=== PATIENT | male | born 1960 | race Caucasian/White ===

== ENCOUNTER 2016-07-01 06:41 | Day surgery (SDC) | payer OTHER ==
[2016-06-06 10:29] VITALS: BMI 26.4
[~2016-07-01 06:41] MED LIST: LACTATED RINGERS 1,000 ML IV SCH
[2016-07-01] MEDS ORDERED: LACTATED RINGERS 1,000 ML IV ONE ×2 (07:00)
[2016-07-01 07:06] VITALS: RESP 18; TEMP 96.8
[2016-07-01] MEDS ORDERED: fentaNYL (PF) 50 MCG/ML 2 ML AMP ONE (07:48)
[2016-07-01] MEDS ORDERED: PROPOFOL 10 MG/ML 20 ML VIAL IV ONE (07:48)
[2016-07-01] MEDS ORDERED: MIDAZOLAM 2 MG/2 ML VIAL ONE (07:48)
--- NOTE | 2016-07-01 07:56 | P.GSHP ---
History of Present Illness H&P Date: 07/01/16 Chief Complaint: Screening colonoscopy This a 56-year-old male been sick for screening colonoscopy. He has never had a colonoscopy before. He denies any significant complaints. - Constitutional Constitutional: Reports as per HPI Past Medical History Past Medical History: GERD/Reflux, Hyperlipidemia, Hypertension, Musculoskeletal Disorder, Osteoarthritis (OA) Additional Past Medical History / Comment(s): CHRONIC SINUS INFECTIONS. SEE H & P BY DR CORONADO FOR CARDIOVASCULAR HX. RAFAT,CARDIOVERSION/ABLATION; DEG. DISCS History of Any Multi-Drug Resistant Organisms: None Reported Past Surgical History: Pacemaker Additional Past Surgical History / Comment(s): FIRST SURGERY Past Anesthesia/Blood Transfusion Reactions: No Reported Reaction Additional Past Anesthesia/Blood Transfusion Reaction / Comment(s): PATIENT HAS NEVER HAD ANESTHESIA. Type of Cardiac Device: Permanent Pacemaker Device Placement Date:: 2014 Past Psychological History: Anxiety Additional Psychological History / Comment(s): RECENTLY LOST HIS JOB. Smoking Status: Former smoker Past Alcohol Use History: Rare Additional Past Alcohol Use History / Comment(s): PT HAS SMOKED FOR 40 YEARS, 1 PPD AND OCC SMOKES MARIJUANA Past Drug Use History: Cocaine, Marijuana - Past Family History Father Additional Family Medical History / Comment(s): HEART TRANSPLANT. Sister(s) Additional Family Medical History / Comment(s): BRAIN ANEURYSM (SURGERY WAS SUCCESSFUL). Medications and Allergies Home Medications Medication Instructions Recorded Confirmed Type Gemfibrozil [Lopid] 600 mg PO BID 07/22/14 07/01/16 History Loratadine 10 mg PO DAILY 07/22/14 07/01/16 History Losartan Potassium 150 mg PO HS 07/22/14 07/01/16 History Multivitamins, Thera [Multivitamin 1 tab PO DAILY 07/22/14 07/01/16 History (formulary)] Ranitidine HCl 150 mg PO BID 07/22/14 07/01/16 History clonazePAM [Clonazepam] 1 mg PO HS PRN 07/22/14 07/01/16 History Edoxaban Tosylate [Savaysa] 60 mg PO DAILY 08/30/14 07/01/16 History Spironolactone [Aldactone] 25 mg PO QAM 08/30/14 07/01/16 History amLODIPine [Norvasc] 10 mg PO DAILY 09/06/14 07/01/16 History Atorvastatin [Lipitor] 20 mg PO HS 11/03/14 07/01/16 History HYDROcodone/APAP 7.5-325MG [[place] 1 each PO Q6HR PRN 11/03/14 07/01/16 History 7.5-325] Allergies Allergy/AdvReac Type Severity Reaction Status Date / Time cephalexin monohydrate Allergy Rash/Hives Verified 07/01/16 07:06 [From Keflex] Surgical - Exam Vital Signs Temp Pulse Resp BP Pulse Ox 96.8 F L 77 18 136/75 95 07/01/16 07:02 07/01/16 07:02 07/01/16 07:02 07/01/16 07:02 07/01/16 07:02 - General well developed, no distress - Eyes PERRL - ENT normal pinna - Neck no masses - Respiratory normal expansion - Cardiovascular Rhythm: regular - Abdomen Abdomen: soft Assessment and Plan Plan: We'll perform screening colonoscopy
--- NOTE | 2016-07-01 08:06 | P.OP ---
Date of Procedure: 07/01/16 Preoperative Diagnosis: Screening colonoscopy Postoperative Diagnosis: Diverticulosis External hemorrhoids Procedure(s) Performed: Colonoscopy Anesthesia: MAC Surgeon: Wes Wyatt Pathology: none sent Condition: stable Disposition: PACU Description of Procedure: The patient's placed on the endoscopy table in the lateral position. Received IV sedation. Digital rectal exam was performed which revealed external hemorrhoids. The flexible colonoscope was then placed patient anus passed throughout the entire colon. The ileocecal valve was visualized. Cecum, ascending, transverse colon appeared normal. In the descending; there is mild diverticular changes. There is no evidence of diverticulitis. The scope was then brought back the rectum and this appeared normal. Scope was withdrawn for patient.
[2016-07-01 08:26] VITALS: BP 103/58; PULSE 64
== END 2016-07-01 08:44 | disposition home or self-care (01) ==
LOC: ORWHC2ENDO 06:41
PROVIDERS: ATTEND Surgery
DX: Z12.11 Encounter for screening for malignant neoplasm of colon (principal); K57.30 Diverticulosis of large intestine without perforation or abscess without bleeding; E78.5 Hyperlipidemia, unspecified; K64.4 Residual hemorrhoidal skin tags; Z87.891 Personal history of nicotine dependence; K21.9 Gastro-esophageal reflux disease without esophagitis; I10 Essential (primary) hypertension; Z95.0 Presence of cardiac pacemaker; Z79.899 Other long term (current) drug therapy; Z88.1 Allergy status to other antibiotic agents
CPT/HCPCS: J2250; J3010; J2704; G0121

== ENCOUNTER 2016-07-20 13:39 | Emergency (ER) | payer OTHER ==
[2016-07-20 13:49] VITALS: BP 180/81; PULSE 84; RESP 16; TEMP 98
[2016-07-20] MEDS ORDERED: PROPARACAINE 0.5% OPHTH DROPS 15 ML BTL LEFT EYE STA (13:51)
[2016-07-20] MEDS ORDERED: TOBRAMYCIN 0.3% OPHTH DROPS 5 ML BTL LEFT EYE STA (14:01)
--- NOTE | 2016-07-20 14:02 | ED ---
Eye Problem HPI - General Chief complaint: Eye Problems Stated complaint: FB left eye Time Seen by Provider: 07/20/16 13:48 Source: patient Mode of arrival: ambulatory Limitations: no limitations - History of Present Illness Initial comments: 56-year-old male woke up today with left eye feeling irritated. Patient states every time he blinks he feels a foreign body sensation. Patient states he was working on his car yesterday is not sure something fell and it repeat cirrhosis. Patient states yesterday there was no signs or symptoms of any foreign body. He denies any visual changes. He does notice some redness. He denies any drainage today. no fevers no rash. No chronic eye disease. Patient has had some sinus pressure congestion that ongoing for a few weeks. Patient states he does get chronic infection and seasonal ALLERGIES often. Location: left eye Eye Symptoms: redness, pain, foreign body sensation - Related Data Patient Tetanus UTD: Yes Home Medications Medication Instructions Recorded Confirmed Gemfibrozil [Lopid] 600 mg PO BID 07/22/14 07/20/16 Loratadine 10 mg PO DAILY 07/22/14 07/20/16 Losartan Potassium 150 mg PO HS 07/22/14 07/20/16 Multivitamins, Thera [Multivitamin 1 tab PO DAILY 07/22/14 07/20/16 (formulary)] Ranitidine HCl 150 mg PO BID 07/22/14 07/20/16 clonazePAM [Clonazepam] 1 mg PO HS PRN 07/22/14 07/20/16 Edoxaban Tosylate [Savaysa] 60 mg PO DAILY 08/30/14 07/20/16 Spironolactone [Aldactone] 25 mg PO QAM 08/30/14 07/20/16 amLODIPine [Norvasc] 10 mg PO DAILY 09/06/14 07/20/16 Atorvastatin [Lipitor] 20 mg PO HS 11/03/14 07/20/16 HYDROcodone/APAP 7.5-325MG [[place] 1 each PO Q6HR PRN 11/03/14 07/20/16 7.5-325] Previous Rx's Medication Instructions Recorded Metoprolol Succinate (ER) [Toprol 100 mg PO DAILY #30 tab.er.24h 11/08/14 XL] Sulfamethox-Tmp 800-160Mg [Bactrim 1 each PO Q12HR #14 tab 07/20/16 DS 800-160 mg] Allergies Allergy/AdvReac Type Severity Reaction Status Date / Time cephalexin monohydrate Allergy Rash/Hives Verified 07/20/16 13:49 [From Keflex] Review of Systems ROS Statement: Those systems with pertinent positive or pertinent negative responses have been documented in the HPI. ROS Other: All systems not noted in ROS Statement are negative. Constitutional: Denies: fever, chills Eyes: Reports: eye pain ENT: Denies: ear pain, throat pain, dental pain, hearing loss, epistaxis Respiratory: Denies: cough Past Medical History Past Medical History: GERD/Reflux, Hyperlipidemia, Hypertension, Musculoskeletal Disorder, Osteoarthritis (OA) Additional Past Medical History / Comment(s): CHRONIC SINUS INFECTIONS. SEE H & P BY DR CORONADO FOR CARDIOVASCULAR HX. RAFAT,CARDIOVERSION/ABLATION; DEG. DISCS History of Any Multi-Drug Resistant Organisms: None Reported Past Surgical History: Pacemaker Additional Past Surgical History / Comment(s): FIRST SURGERY Past Anesthesia/Blood Transfusion Reactions: No Reported Reaction Additional Past Anesthesia/Blood Transfusion Reaction / Comment(s): PATIENT HAS NEVER HAD ANESTHESIA. Type of Cardiac Device: Permanent Pacemaker Device Placement Date:: 2014 Past Psychological History: Anxiety Additional Psychological History / Comment(s): RECENTLY LOST HIS JOB. Smoking Status: Former smoker Past Alcohol Use History: Rare Additional Past Alcohol Use History / Comment(s): PT HAS SMOKED FOR 40 YEARS, 1 PPD AND OCC SMOKES MARIJUANA Past Drug Use History: Cocaine, Marijuana - Past Family History Father Additional Family Medical History / Comment(s): HEART TRANSPLANT. Sister(s) Additional Family Medical History / Comment(s): BRAIN ANEURYSM (SURGERY WAS SUCCESSFUL). General Exam Limitations: no limitations General appearance: alert, in no apparent distress Head exam: Present: atraumatic, normocephalic, normal inspection Eye exam: Present: normal appearance, PERRL, EOMI, conjunctival injection (Left) , other (After proparacaine and fluorescein abrasion noted around 7:00.). Absent: scleral icterus, periorbital swelling Pupils: Present: normal accommodation ENT exam: Present: normal exam, mucous membranes moist, other (Sinus pressure and maxillary and frontal sinus with palpation along with swollen turbinates.) Neck exam: Present: normal inspection. Absent: tenderness, meningismus, lymphadenopathy Respiratory exam: Present: normal lung sounds bilaterally Cardiovascular Exam: Present: regular rate, normal rhythm, normal heart sounds. Absent: systolic murmur, diastolic murmur, rubs, gallop, clicks Course Vital Signs 07/20/16 13:46 Temperature 98 F Pulse Rate 84 Respiratory 16 Rate Blood Pressure 180/81 O2 Sat by Pulse 96 Oximetry Procedures - Procedures Initial comment: Patient given fluorescein and tetracaine in his left eye. Large abrasion noted around 7:00 2 drops of Tobrex was given patient tolerated it well. Medical Decision Making - Medical Decision Making Patient has a corneal abrasion understands follow-up care if not improving in the next 1-2 days with chief specialist leed. Patient to return sooner if any problems. Patient to use medications as prescribed and to rest side. Disposition Clinical Impression: Corneal abrasion, Sinusitis Disposition: HOME SELF-CARE Condition: Good Instructions: Abrasion (ED) Additional Instructions: Patient use Tobrex eyedrops 2 drops every 6 hours for 7 days Prescriptions: Sulfamethox-Tmp 800-160Mg [Bactrim DS 800-160 mg] 1 each PO Q12HR #14 tab Referrals: Flor Bowles MD [Primary Care Provider] - 1-2 days Winter Phoenix MD [STAFF PHYSICIAN] - 1-2 days Time of Disposition: 14:06
== END 2016-07-20 14:09 | disposition home or self-care (01) ==
LOC: EC 13:39
DX: S05.02XA Injury of conjunctiva and corneal abrasion without foreign body, left eye, initial encounter (principal); J32.9 Chronic sinusitis, unspecified; E78.5 Hyperlipidemia, unspecified; I10 Essential (primary) hypertension; Z88.1 Allergy status to other antibiotic agents; Z79.899 Other long term (current) drug therapy; Z87.891 Personal history of nicotine dependence; X58.XXXA Exposure to other specified factors, initial encounter
CPT/HCPCS: 99283

== ENCOUNTER → 2017-09-24 | Outpatient (CLI) | payer MEDICARE, OTHER ==
--- NOTE | 2017-09-24 14:29 | CT ---
EXAMINATION TYPE: CT lumbar spine wo con DATE OF EXAM: 09/24/2017 COMPARISON: 06/16/2015 HISTORY: 57-year-old male with lumbago, Low back pain TECHNIQUE: Contiguous axial scanning of the lumbar spine without IV contrast. Coronal and sagittal re constructions performed. CT DLP: 937.9 mGycm Automated exposure control for dose reduction was used. FINDINGS: Vertebral body heights are preserved. Facet arthropathy mid to lower lumbar spine with trace grade 1 retrolisthesis at L4-L5 appears relati vely similar. Multilevel degenerative disc disease with variable disc space narrowing, greatest at L4-L5 and L5-S1 where disc vacuum is also present and disc osteophyte complexes. Bulging disks at multiple levels. En dplate sclerosis at L5-S1. Changes show some progression from 2016. Vertebral body heights are preserved. On the right, there are similar mild to moderate neuroforaminal stenoses from L2 through S1 levels. O n the left, there are similar moderate neuroforaminal stenoses from L4 through S1 levels and mild at L3-L4. Mild narrowing of the spinal canal secondary to disc bulges again noted from L2 through L4 levels. No maryanne canal compromise appreciated by CT. Ectatic infrarenal abdominal aorta at 2.8 cm. A few scattered sigmoid diverticula. Renal vascular calcifications. IMPRESSION: 1. NO VERTEBRAL COMPRESSION COLLAPSE. FACET ARTHROPATHY MID TO LOWER LUMBAR SPINE WITH SIMILAR TRACE GRADE 1 RETROLISTHESIS AT L4-L5. 2. DEGENERATIVE DISC DISEASE SLIGHTLY PROGRESSED FROM L4 THROUGH S1 LEVELS. THERE IS GREATER DEGREE O F VACUUM PHENOMENON AND DISC OSTEOPHYTE COMPLEX FORMATION. HOWEVER, THERE IS OVERALL SIMILAR VARIABLE MILD NARROWING OF THE SPINAL CANAL. 3. SIMILAR VARIABLE MODERATE NEUROFORAMINAL STENOSES ESPECIALLY FROM L4 TO S1 LEVELS ON THE LEFT. MIL D TO MODERATE NEUROFORAMINAL NARROWING L2-S1 LEVELS ON THE RIGHT.
== END | disposition home or self-care (01) ==
LOC: RADCTMAIN 13:08
PROVIDERS: ATTEND Psychiatry & Neurology Neurology
DX: M48.061 Spinal stenosis, lumbar region without neurogenic claudication (principal); M99.73 Connective tissue and disc stenosis of intervertebral foramina of lumbar region; M46.96 Unspecified inflammatory spondylopathy, lumbar region; M51.37 Other intervertebral disc degeneration, lumbosacral region
CPT/HCPCS: 72131

== ENCOUNTER → 2017-10-17 | Outpatient (CLI) | payer MEDICARE ==
--- NOTE | 2017-10-17 16:44 | CT ---
EXAMINATION TYPE: CT sinus wo con DATE OF EXAM: 10/17/2017 COMPARISON: None. HISTORY: Sinus infections x years. CT DLP: 612 mGycm. Automated Exposure Control for Dose Reduction was Utilized. TECHNIQUE: CT scan of the sinuses is performed without contrast, axial images are obtained, coronal r eformatted images are also reviewed. FINDINGS: Visualized intracranial structures are unremarkable. The soft tissues appear normal. There is mucoperiosteal thickening involving both maxillary sinuses as well as the ethmoid sinuses. T he ostiomeatal complex on the left is patent. On the right it appears occluded by soft tissue. The fr ontal and sphenoid sinuses appear unremarkable. There is a small air-fluid level in the right maxilla ry sinus. No bony destructive lesion is seen. Visualized portions of the mastoids are clear. IMPRESSION: CHRONIC MUCOPERIOSTEAL THICKENING INVOLVING THE MAXILLARY AND ETHMOIDAL SINUSES. I COULD NOT EXCLUDE SOME DEGREE OF ACUTE RIGHT MAXILLARY SINUSITIS.
== END | disposition home or self-care (01) ==
LOC: RADCTMAIN 16:11
PROVIDERS: ATTEND Otolaryngology
DX: J34.89 Other specified disorders of nose and nasal sinuses (principal)
CPT/HCPCS: 70486

== ENCOUNTER → 2018-06-22 | Outpatient (CLI) | payer MEDICARE ==
[2018-06-22 10:58] LABS: HCT 44.8 % (39.0-53.0); HGB 14.6 gm/dL (13.0-17.5); MCH 30.8 pg (25.0-35.0); MCHC 32.7 g/dL (31.0-37.0); MCV 94.2 fL (80.0-100.0); Mean Platelet Volume 6.8; Platelet Count 351 k/uL (150-450); RBC 4.75 m/uL (4.30-5.90); RDW 13.6 % (11.5-15.5); WBC 11.3 k/uL (3.8-10.6)
[2018-06-22 11:16] LABS: Potassium 4.8 mmol/L (3.5-5.1)
== END | disposition home or self-care (01) ==
LOC: LABPAT 10:11
PROVIDERS: ATTEND Internal Medicine Cardiovascular Disease
DX: Z01.812 Encounter for preprocedural laboratory examination (principal); I10 Essential (primary) hypertension; I42.1 Obstructive hypertrophic cardiomyopathy; I44.2 Atrioventricular block, complete
CPT/HCPCS: 80051; 82565; 84520; 85027

== ENCOUNTER 2018-06-25 08:32 | Day surgery (SDC) | payer MEDICARE ==
[2018-06-19 13:03] VITALS: BMI 27.8
[~2018-06-25 08:32] MED LIST changes: +ALPRAZolam 0.25 MG TAB PO PRN; +ALPRAZolam 0.5 MG TAB PO PRN; +ASPIRIN 325 MG TAB PO ONE; +ATORVASTATIN 80 MG TAB PO ONE; -LACTATED RINGERS 1,000 ML IV SCH; +NITROGLYCERIN SL TABS 0.4 MG TAB SUBLINGUAL PRN; +SODIUM CHLORIDE 0.9% 1,000 ML IV SCH; +SODIUM CHLORIDE 0.9% 1,000 ML in EMPTY BAG 1 BAG IV ONE
[2018-06-25 09:15] VITALS: TEMP 98.1
[2018-06-25] MEDS ORDERED: MIDAZOLAM 2 MG/2 ML VIAL IVP ONE ×2 (12:33→12:37)
[2018-06-25] MEDS ORDERED: fentaNYL (PF) 50 MCG/ML 2 ML AMP IVP ONE ×2 (12:34→12:50)
[2018-06-25] MEDS ORDERED: NITROGLYCERIN SL TABS 0.4 MG TAB SUBLINGUAL ONE ×2 (12:38→12:53)
[2018-06-25] MEDS ORDERED: LIDOCAINE 1% INJ 10MG/ML (20 ML MDV) SQ ONE ×2 (12:38→12:50)
[2018-06-25] MEDS ORDERED: IOPAMIDOL-370 125ML BTL INJ ONE (13:01)
[2018-06-25] MEDS ORDERED: RX INFO: IV CONTRAST WAS GIVEN 1 EACH MISC MISCELLANE PRN (13:33)
[2018-06-25] MEDS ORDERED: HYDROcodone/APAP 10-325MG 1 EACH TAB ONE (14:06)
--- NOTE | 2018-06-25 16:01 | CC ---
CARDIAC CATHETERIZATION REPORT Mr. Crespo is a 58-year-old gentleman who has a history of cardiomyopathy with a prior history of Bi-V pacemaker placement. The patient recently underwent a stress test which showed evidence of basal inferior lateral ischemia. In view of that, the patient was recommended to have a cardiac catheterization for definitive diagnosis to rule out any significant coronary artery disease. DESCRIPTION OF PROCEDURE: The right groin is prepped and draped in the usual manner and the skin was infiltrated with 2% Xylocaine. The right femoral artery was entered using ultrasound guidance and micropuncture needle. A #6-Serbian sheath was placed in. Selective coronary angiography was then performed in multiple projections and the left ventricular pressures were obtained. The patient tolerated the procedure well. HEMODYNAMICS: Left ventricular end-diastolic pressure is 12 mmHg prior to angiography. No gradient is noted across the aortic valve. SELECTIVE CORONARY ANGIOGRAPHY: LEFT MAIN: Left main coronary artery is normally patent. Left anterior descending coronary artery: LAD is a good caliber blood vessel and gives rise to a good size diagonal branch. LAD and its branches are normal. CIRCUMFLEX CORONARY ARTERY: Circumflex coronary artery is dominant in distribution. Gives rise to good-sized obtuse marginal branch and it then continues as a good size PLV branch. Circumflex coronary artery and its branches are normal. RIGHT CORONARY ARTERY : Right coronary artery is small and nondominant and it is normal. FINAL IMPRESSION: This study reveals normal coronary arteries. The left ventricular end-diastolic pressure is normal. RECOMMENDATIONS: Medical treatment. MMODL / IJN: [id number] /
[2018-06-25 17:29] VITALS: BP 163/83; PULSE 66; RESP 18
== END 2018-06-25 18:52 | disposition home or self-care (01) ==
LOC: CATHCVL 08:32 → 1SOBS 13:01 → CATHCVL 18:52
PROVIDERS: ATTEND Internal Medicine Cardiovascular Disease
DX: I42.1 Obstructive hypertrophic cardiomyopathy (principal); I44.2 Atrioventricular block, complete; I10 Essential (primary) hypertension; Z72.0 Tobacco use; Z95.0 Presence of cardiac pacemaker; Z79.01 Long term (current) use of anticoagulants; Z79.899 Other long term (current) drug therapy
CPT/HCPCS: 93458; 76937; C1760; C1894; C1769 ×2; J2250; J2001; J3010; Q9967

== ENCOUNTER 2021-02-01 13:13 | Inpatient (IN) | payer MEDICARE ==
[2021-02-01] MEDS ORDERED: MORPHINE SULFATE 4 MG/ML SYRINGE IV STA (13:18)
[2021-02-01] MEDS ORDERED: SODIUM CHLORIDE 0.9% 1,000 ML IV STA ×2 (13:18→15:29)
[2021-02-01] MEDS ORDERED: ONDANSETRON 4 MG/2 ML VIAL IVP STA (13:28)
[2021-02-01 13:57] LABS: Basophils % (A) 0 %; Eosinophils # (A) 0.1 k/uL (0-0.7); Eosinophils % (A) 0 %; HCT 51.6 % (39.0-53.0); HGB 17.4 gm/dL (13.0-17.5); Lymphocytes # (A) 1.5 k/uL (1.0-4.8); Lymphocytes % (A) 5 %; MCH 31.4 pg (25.0-35.0); MCHC 33.7 g/dL (31.0-37.0); MCV 93.3 fL (80.0-100.0); Mean Platelet Volume 8.8; Monocytes # (A) 1.4 k/uL (0-1.0); Monocytes % (A) 5 %; Neutrophils # (A) 23.9 k/uL (1.3-7.7); Neutrophils % (A) 88 %; Platelet Count 426 k/uL (150-450); RBC 5.54 m/uL (4.30-5.90); RDW 12.9 % (11.5-15.5); WBC 27.1 k/uL (3.8-10.6)
--- NOTE | 2021-02-01 14:05 | XR ---
EXAMINATION TYPE: XR chest 2V DATE OF EXAM: 02/01/2021 COMPARISON: Chest x-ray 11/09/2014 HISTORY: Weakness TECHNIQUE: Frontal and lateral views of the chest are obtained on 3 images. FINDINGS: Volumes are low. There is no focal air space opacity, pleural effusion, or pneumothorax see n. The cardiac silhouette size is stable accounting for differences in technique. The generator in t he left pectoral region, leads in right atrium, ventricle, coronary sinus. The osseous structures ar e intact. IMPRESSION: No acute cardiopulmonary process.
[2021-02-01 14:09] LABS: INR 1.1 (<1.2); Partial Thromboplastin Time 29.4 sec (22.0-30.0); Prothrombin Time 11.8 sec (9.0-12.0)
--- NOTE | 2021-02-01 14:53 | CT ---
EXAMINATION TYPE: CT abdomen pelvis w con DATE OF EXAM: 02/01/2021 COMPARISON: None. HISTORY: subumbilical pain, nausea, vomiting CT DLP: 1082.8 mGycm, Automated Exposure Control for Dose Reduction was Utilized. CONTRAST: CT scan of the abdomen and pelvis is performed with oral and with IV Contrast, patient injected with 100 mL of Isovue 300. FINDINGS: LUNG BASES: Mild cardiomegaly with multi lead pacemaker/defibrillator. LIVER/GB: Liver is diffusely low dense consistent with diffuse fatty infiltration. PANCREAS: No significant abnormality is seen. SPLEEN: No significant abnormality is seen. ADRENALS: No significant abnormality is seen. KIDNEYS: Scattered simple appearing thin-walled cysts throughout both kidneys. No hydronephrosis seen bilaterally. Central vascular calcifications are present. BOWEL: Slightly suboptimal evaluation of bowel without enteric contrast. Moderately distended stomach with air-fluid level. Dependent density could reflect ingested food product or other material in the fundus. Correlate clinically. No dilatation or distention of the duodenal sweep. No suspicious small or large bowel dilatation. Some scattered air-fluid levels throughout small and large bowel loops. A reas of mild wall thickening are present. PROSTATE/SEMINAL VESICLES: No gross abnormality seen. LYMPH NODES: No greater than 1cm abdominal or pelvic lymph nodes are appreciated. OSSEOUS STRUCTURES: Moderate disc space narrowing and spurring L4-L5 and L5-S1 levels. OTHER: No significant additional abnormality is seen. IMPRESSION: No bowel obstruction. Cannot exclude mild uncomplicated enterocolitis. Correlate clinica lly.
--- NOTE | 2021-02-01 14:53 | ED ---
Abdominal Pain HPI <Vince Plascencia - Last Filed: 02/01/21 16:17> - General Source: patient, EMS, RN notes reviewed Limitations: no limitations <Blaine Young - Last Filed: 02/06/21 18:58> - General Chief Complaint: Abdominal Pain Stated Complaint: Weakness Time Seen by Provider: 02/01/21 13:18 - History of Present Illness Initial Comments: Patient is a 60-year-old male that presents to emergency room complaining of abdominal pain and generalized weakness. He notes that he does have a pacemaker as he had a irregular heartbeat in the past. She denied any abdominal history such as appendicitis cholecystitis diverticulitis diverticulosis or gallbladder patient also noted that he felt weak. He did feel nauseous. He denied any recent sick contacts other than his sister who was Covid-positive. Patient denied any chest pain shortness of breath headache diarrhea constipation fever fatigue chills. (Blaine Young) - Related Data Home Medications Medication Instructions Recorded Confirmed Loratadine 10 mg PO DAILY 07/22/14 02/01/21 Multivitamins, Thera [Multivitamin 1 tab PO DAILY 07/22/14 02/01/21 (formulary)] clonazePAM [Clonazepam] 2 mg PO HS 07/22/14 02/01/21 amLODIPine [Norvasc] 10 mg PO DAILY 09/06/14 02/01/21 Atorvastatin [Lipitor] 20 mg PO HS 11/03/14 02/01/21 Baclofen [Lioresal] 10 mg PO BID 06/19/18 02/01/21 Fenofibrate Nanocrystallized 145 mg PO DAILY 06/19/18 02/01/21 [Fenofibrate] HYDROcodone/APAP 10-325MG [[place] 1 tab PO BID 06/19/18 02/01/21 10-325] Morphine Sulfate ER [Ms Contin] 15 mg PO DAILY 02/01/21 02/01/21 Previous Rx's Medication Instructions Recorded Metoprolol Succinate (ER) [Toprol 100 mg PO DAILY #30 tab.er.24h 11/08/14 XL] Pantoprazole Sodium [Protonix] 40 mg PO DAILY #15 tab 02/04/21 Pantoprazole [Protonix] 40 mg PO BID 15 Days #30 tab 02/04/21 Allergies Allergy/AdvReac Type Severity Reaction Status Date / Time cephalexin monohydrate Allergy Rash/Hives Verified 02/01/21 15:22 [From Keflex] Review of Systems ROS Other: All systems not noted in ROS Statement are negative. <Vince Plascencia - Last Filed: 02/01/21 16:17> ROS Other: All systems not noted in ROS Statement are negative. <YoungBlaine - Last Filed: 02/06/21 18:58> ROS Statement: Those systems with pertinent positive or pertinent negative responses have been documented in the HPI. Past Medical History Past Medical History: GERD/Reflux, Hyperlipidemia, Hypertension, Musculoskeletal Disorder, Osteoarthritis (OA) Additional Past Medical History / Comment(s): CHRONIC SINUS INFECTIONS. RAFAT,CARDIOVERSION/ABLATION; DEG. DISCS History of Any Multi-Drug Resistant Organisms: None Reported Past Surgical History: Ablation, Pacemaker Additional Past Surgical History / Comment(s): FIRST SURGERY Past Anesthesia/Blood Transfusion Reactions: No Reported Reaction Additional Past Anesthesia/Blood Transfusion Reaction / Comment(s): PATIENT HAS NEVER HAD ANESTHESIA. Type of Cardiac Device: Permanent Pacemaker Device Placement Date:: 2014 Past Psychological History: Anxiety Past Alcohol Use History: Rare Past Drug Use History: Marijuana - Past Family History Father Additional Family Medical History / Comment(s): HEART TRANSPLANT. Sister(s) Additional Family Medical History / Comment(s): BRAIN ANEURYSM (SURGERY WAS SUCCESSFUL). <Blaine Young - Last Filed: 02/06/21 18:58> General Exam Limitations: no limitations General appearance: alert, in no apparent distress, lethargic Head exam: Present: atraumatic, normocephalic, normal inspection Eye exam: Present: normal appearance, PERRL, EOMI. Absent: scleral icterus, conjunctival injection, periorbital swelling ENT exam: Present: normal exam, mucous membranes moist Neck exam: Present: normal inspection Respiratory exam: Present: normal lung sounds bilaterally. Absent: respiratory distress, wheezes, rales, rhonchi, stridor Cardiovascular Exam: Present: regular rate, normal rhythm, normal heart sounds. Absent: systolic murmur, diastolic murmur, rubs, gallop, clicks GI/Abdominal exam: Present: soft, tenderness (Left lower quadrant, right upper quadrant, lower quadrant.), normal bowel sounds. Absent: distended, guarding, rebound, rigid Extremities exam: Present: normal inspection, full ROM, normal capillary refill. Absent: tenderness, pedal edema, joint swelling, calf tenderness Neurological exam: Present: alert, oriented X3 Psychiatric exam: Present: normal affect, normal mood <Blaine Young - Last Filed: 02/06/21 18:58> Course Vital Signs 02/01/21 02/01/21 02/01/21 13:15 15:43 17:22 Temperature 96.9 F L 97.4 F L Pulse Rate 67 72 76 Respiratory 18 18 Rate Blood Pressure 132/86 126/60 O2 Sat by Pulse 96 97 Oximetry 02/01/21 02/01/21 02/01/21 17:28 17:37 18:09 Temperature 98.2 F Pulse Rate 75 80 89 Respiratory 18 15 Rate Blood Pressure 109/62 99/61 O2 Sat by Pulse 98 96 Oximetry Medical Decision Making - Lab Data Result diagrams: 02/01/21 13:44 02/01/21 13:44 <Vince Plascencia - Last Filed: 02/01/21 16:17> - Lab Data Result diagrams: 02/04/21 05:44 02/04/21 05:44 - EKG Data -: EKG Interpreted by Me EKG shows normal: sinus rhythm - Radiology Data Radiology results: report reviewed, image reviewed <Blaine Young - Last Filed: 02/06/21 18:58> - Medical Decision Making Patient care signed out to me by previous shift physician reproductive healthcare assistant, Kris Young. Briefly, patient is a 60-year-old male he states that he is disabled, comorbidities presents here in emergency department for suprapubic abdominal pain and generalized weakness. Vital signs upon arrival are within acceptable limits. At the bedside he does have diffusely dry mucous membranes. Seems very dehydrated. He has soft abdomen with mild palpatory tenderness to the suprapubic area. Does not appear to be in significant distress. He had labs ordered with a leukocytosis of 27.1. Normal coag panel. Potassium of 6.6, bicarb of 5, BUN of 170, creatinine not reported. Lipase of 1635. He had a c omputed tomography scan of the abdomen and pelvis that was ordered showing Degree of patient's lab abnormalities patient will admitted to intensive care unit. Dr. Wyatt was contacted due to patient's abdominal pain and elevated white count. CT did not show any obvious signs of intra-abdominal infection. Furthermore he does not have a surgical abdomen on physical examination. Case is discussed with hosiery knitter Dr. López who is willing to accept patients care. Nephrology contacted for stat HD. Basilar surgery consulted for stat HD catheter placement. Patient started on sodium bicarbonate, Levaquin ID is also consulted. At the bedside multiple times between 3:30 and 4:30 PM. He appears to be in stable condition. He will be dispositioned to the intensive care unit. There is no obvious source of patient's issues. More history was obtained denied any toxic ingestions. He is nonsuicidal. (Vince Plascencia) 60-year-old male complaining of abdominal pain and weakness. Labs, EKG, panel monitor, CT abdomen and pelvis, chest x-ray, 1 L normal saline, 4 mg morphine, 4 mg Zofran ordered. Chest x-ray negative. CT shows possible mild uncomplicated enterocolitis. (Blaine Young) - Lab Data Lab Results 02/01/21 02/01/21 02/01/21 Range/Units 13:44 13:44 13:44 WBC 27.1 H (3.8-10.6) k/uL RBC 5.54 (4.30-5.90) m/uL Hgb 17.4 (13.0-17.5) gm/dL Hct 51.6 (39.0-53.0) % MCV 93.3 (80.0-100.0) fL MCH 31.4 (25.0-35.0) pg MCHC 33.7 (31.0-37.0) g/dL RDW 12.9 (11.5-15.5) % Plt Count 426 (150-450) k/uL MPV 8.8 Neutrophils % 88 % Lymphocytes % 5 % Monocytes % 5 % Eosinophils % 0 % Basophils % 0 % Neutrophils # 23.9 H (1.3-7.7) k/uL Lymphocytes # 1.5 (1.0-4.8) k/uL Monocytes # 1.4 H (0-1.0) k/uL Eosinophils # 0.1 (0-0.7) k/uL Basophils # 0.0 (0-0.2) k/uL PT 11.8 (9.0-12.0) sec INR 1.1 (<1.2) APTT 29.4 (22.0-30.0) sec VBG pH (7.31-7.41) VBG pCO2 (37-51) mmHg VBG HCO3 (24-28) mmol/L Sodium (137-145) mmol/L Potassium (3.5-5.1) mmol/L Chloride (98-107) mmol/L Carbon Dioxide (22-30) mmol/L Anion Gap mmol/L BUN (9-20) mg/dL Creatinine (0.66-1.25) mg/dL Est GFR (CKD-EPI)AfAm (>60 ml/min/1.73 sqM) Est GFR (CKD-EPI)NonAf (>60 ml/min/1.73 sqM) Glucose (74-99) mg/dL Calcium (8.4-10.2) mg/dL Total Bilirubin (0.2-1.3) mg/dL AST (17-59) U/L ALT (4-49) U/L Alkaline Phosphatase (38-126) U/L Troponin I (0.000-0.034) ng/mL Total Protein (6.3-8.2) g/dL Albumin (3.5-5.0) g/dL Amylase (30-110) U/L Lipase (23-300) U/L Urine Color Yellow Urine Appearance Clear (Clear) Urine pH 5.0 (5.0-8.0) Ur Specific Nelson 1.027 (1.001-1.035) Urine Protein 1+ H (Negative) Urine Glucose (UA) Negative (Negative) Urine Ketones Negative (Negative) Urine Blood Moderate H (Negative) Urine Nitrite Negative (Negative) Urine Bilirubin Negative (Negative) Urine Urobilinogen <2.0 (<2.0) mg/dL Ur Leukocyte Esterase Trace H (Negative) Urine RBC 5 (0-5) /hpf Urine WBC 9 H (0-5) /hpf Ur Squamous Epith Cells 1 (0-4) /hpf Urine Bacteria Rare H (None) /hpf Hyaline Casts 35 H (0-2) /lpf Urine Mucus Rare H (None) /hpf 10/28/21 10/28/21 10/28/21 Range/Units 13:44 13:44 15:39 WBC (3.8-10.6) k/uL RBC (4.30-5.90) m/uL Hgb (13.0-17.5) gm/dL Hct (39.0-53.0) % MCV (80.0-100.0) fL MCH (25.0-35.0) pg MCHC (31.0-37.0) g/dL RDW (11.5-15.5) % Plt Count (150-450) k/uL MPV Neutrophils % % Lymphocytes % % Monocytes % % Eosinophils % % Basophils % % Neutrophils # (1.3-7.7) k/uL Lymphocytes # (1.0-4.8) k/uL Monocytes # (0-1.0) k/uL Eosinophils # (0-0.7) k/uL Basophils # (0-0.2) k/uL PT (9.0-12.0) sec INR (<1.2) APTT (22.0-30.0) sec VBG pH 7.16 L* (7.31-7.41) VBG pCO2 33 L (37-51) mmHg VBG HCO3 11 L (24-28) mmol/L Sodium 132 L (137-145) mmol/L Potassium 6.6 H* (3.5-5.1) mmol/L Chloride 94 L (98-107) mmol/L Carbon Dioxide <5 L* (22-30) mmol/L Anion Gap mmol/L BUN 170 H* (9-20) mg/dL Creatinine 14.39 H* (0.66-1.25) mg/dL Est GFR (CKD-EPI)AfAm 4 (>60 ml/min/1.73 sqM) Est GFR (CKD-EPI)NonAf 3 (>60 ml/min/1.73 sqM) Glucose 155 H (74-99) mg/dL Calcium 10.1 (8.4-10.2) mg/dL Total Bilirubin 0.5 (0.2-1.3) mg/dL AST 20 (17-59) U/L ALT 21 (4-49) U/L Alkaline Phosphatase 46 (38-126) U/L Troponin I 0.021 (0.000-0.034) ng/mL Total Protein 7.8 (6.3-8.2) g/dL Albumin 4.8 (3.5-5.0) g/dL Amylase 345 H* (30-110) U/L Lipase 1635 H (23-300) U/L Urine Color Urine Appearance (Clear) Urine pH (5.0-8.0) Ur Specific Nelson (1.001-1.035) Urine Protein (Negative) Urine Glucose (UA) (Negative) Urine Ketones (Negative) Urine Blood (Negative) Urine Nitrite (Negative) Urine Bilirubin (Negative) Urine Urobilinogen (<2.0) mg/dL Ur Leukocyte Esterase (Negative) Urine RBC (0-5) /hpf Urine WBC (0-5) /hpf Ur Squamous Epith Cells (0-4) /hpf Urine Bacteria (None) /hpf Hyaline Casts (0-2) /lpf Urine Mucus (None) /hpf - EKG Data EKG Comments: Ventricular rate 69 bpm, QRS duration of 148 ms, QTC 454 ms, PRT axes 113/- 80/104, ventricular paced rhythm, abnormal ECG. (Blaine Young) - Radiology Data Chest x-ray: No acute card up on her process. CT of the abdomen and pelvis: No bowel obstruction. Cannot exclude mild uncomplicated enterocolitis. Correlate clinically. (Blaine Young) Critical Care Time Critical Care Time: Yes Total Critical Care Time: 33 <Vince Plascencia - Last Filed: 02/01/21 16:17> Disposition <Vince Plascencia - Last Filed: 02/01/21 16:17> Is patient prescribed a controlled substance at d/c from ED?: No Time of Disposition: 20:45 <Blaine Young - Last Filed: 02/06/21 18:58> Clinical Impression: Hyperkalemia, Acidosis, Acute kidney failure Disposition: ADMITTED IP TO THIS HOSP Condition: Stable
[2021-02-01 15:02] LABS: ALT 21 U/L (4-49); AST 20 U/L (17-59); Albumin 4.8 g/dL (3.5-5.0); Alkaline Phosphatase 46 U/L (38-126); Calcium 10.1 mg/dL (8.4-10.2); Chloride 94 mmol/L (98-107); Glucose 155 mg/dL (74-99); Lipase 1635 U/L (23-300); Sodium 132 mmol/L (137-145); Total Bilirubin 0.5 mg/dL (0.2-1.3); Total Protein 7.8 g/dL (6.3-8.2)
[2021-02-01 15:12] LABS: Potassium 6.6 mmol/L (3.5-5.1)
[2021-02-01 15:13] LABS: Amylase 345 U/L (30-110); Blood Urea Nitrogen 170 mg/dL (9-20); Carbon Dioxide <5 mmol/L (22-30)
[2021-02-01 15:28] LABS: African American GFR (CKD) 4 (>60 ml/min/1.73 sqM); Non-African American GFR(CKD) 3 (>60 ml/min/1.73 sqM)
[2021-02-01] MEDS ORDERED: LEVOFLOXACIN 750MG-D5W PMX 750 MG in DEXTROSE/WATER 1 150ML.BAG IVPB STA (15:28)
[2021-02-01 15:49] LABS: VBG PH 7.16 (7.31-7.41)
[2021-02-01] MEDS ORDERED: SODIUM BICARB 8.4% 50 ML SYR (1 MEQ/ML) IV STA (16:02)
[2021-02-01] MEDS ORDERED: NALOXONE 0.4 MG/ML 1 ML VIAL IV PRN (16:06)
[2021-02-01] MEDS ORDERED: INSULIN REGULAR 100 UNIT/ML VIAL (IV) IV ONE (16:09)
[2021-02-01] MEDS ORDERED: CALCIUM GLUCONATE 1 GM in SODIUM CHLORIDE 0.9% 100 ML IVPB ONE (16:09)
[2021-02-01] MEDS ORDERED: ALBUTEROL NEB (CONC) 2.5 MG/0.5 ML INHALATION ONE (16:09)
[2021-02-01 16:12] LABS: Appearance,Urine Clear (Clear); Bacteria,Urine Rare /hpf; Bilirubin,Urine Negative (Negative); Blood,Urine Moderate (Negative); Color,Urine Yellow; Glucose,Urine (UA) Negative (Negative); Hyaline Casts,Urine 35 /lpf (0-2); Ketones,Urine Negative (Negative); Leukocyte Esterase,Urine Trace (Negative); Mucus,Urine Rare /hpf; Nitrite,Urine Negative (Negative); Protein,Urine 1+ (Negative); RBC,Urine 5 /hpf (0-5); Specific Gravity,Urine 1.027 (1.001-1.035); Squamous Epithelial Cell,Urine 1 /hpf (0-4); Urobilinogen,Urine <2.0 mg/dL (<2.0); WBC,Urine 9 /hpf (0-5)
[2021-02-01] MEDS ORDERED: SODIUM CHLORIDE 0.9% 1,000 ML IV SCH (16:15)
[2021-02-01] MEDS: DEXTROSE 5% IN WATER 1,000 ML with SODIUM BICARB (1 MEQ/ML) 150 ML IV SCH (17:14)
[2021-02-01] MEDS ORDERED: DEXTROSE 50% SYRINGE 50 ML IVP STA (17:20)
[2021-02-01] MEDS ORDERED: NOREPINEPHRIN 4 MG-0.9% NS PMX 4 MG/250 ML ML IV ONE (19:09)
[2021-02-01] MEDS: NOREPINEPHRINE 4 MG in SODIUM CHLORIDE 0.9% 250 ML IV SCH (19:28)
--- NOTE | 2021-02-01 20:13 | PCN ---
PROCEDURE NOTE PREOPERATIVE DIAGNOSIS: Acute on chronic renal failure. POSTOPERATIVE DIAGNOSIS: Acute on chronic renal failure. PROCEDURE PERFORMED: Ultrasound-guided dialysis catheter placement via right femoral approach. PROCEDURE DESCRIPTION: The patient was seen in the emergency room. Right groin was prepped and draped in the usual sterile manner. Lidocaine 1% was infiltrated in the groin area. Then ultrasound- guided micropuncture was introduced into right femoral vein. Micropuncture guidewire was passed and 4-[place] dilator on top of the guidewire. After that we passed a regular guidewire. Then we placed the dilator on the top of the guidewire. Then we placed a dialysis catheter without any resistance. Flushed with heparin saline and hep- locked, secured with 3-0 nylon. Patient tolerated the procedure well. ROMARIO / JORDANN: [id number] /
[2021-02-01 23:51] LABS: Basophils # (A) 0.1 k/uL (0-0.2); Basophils % (A) 0 %; Eosinophils # (A) 0.1 k/uL (0-0.7); Eosinophils % (A) 0 %; HCT 39.7 % (39.0-53.0); Lymphocytes # (A) 1.4 k/uL (1.0-4.8); Lymphocytes % (A) 5 %; MCH 31.6 pg (25.0-35.0); MCHC 34.8 g/dL (31.0-37.0); MCV 90.8 fL (80.0-100.0); Mean Platelet Volume 8.7; Monocytes # (A) 2.2 k/uL (0-1.0); Monocytes % (A) 8 %; Neutrophils # (A) 25.2 k/uL (1.3-7.7); Neutrophils % (A) 86 %; Platelet Count 247 k/uL (150-450); RBC 4.37 m/uL (4.30-5.90); RDW 12.9 % (11.5-15.5); WBC 29.3 k/uL (3.8-10.6)
[2021-02-01 23:53] LABS: HGB 13.8 gm/dL (13.0-17.5)
[2021-02-02 00:03] LABS: Albumin 2.9 g/dL (3.5-5.0); Calcium 7.7 mg/dL (8.4-10.2); Potassium 4.5 mmol/L (3.5-5.1); Total Bilirubin 0.3 mg/dL (0.2-1.3); Total Protein 5.3 g/dL (6.3-8.2)
[2021-02-02] MEDS ORDERED: SODIUM BICARB 8.4% 50 ML SYR (1 MEQ/ML) IV STA (00:44)
[2021-02-02] MEDS: DEXTROSE 5% IN WATER 1,000 ML with SODIUM BICARB (1 MEQ/ML) 150 ML IV SCH ×2 (00:51→08:26)
[2021-02-02] MEDS: PANTOPRAZOLE 40 MG/10 ML VIAL IVP SCH ×3 (01:21→20:11)
[2021-02-02] MEDS: NOREPINEPHRINE 4 MG in SODIUM CHLORIDE 0.9% 250 ML IV SCH (02:11)
[2021-02-02] MEDS ORDERED: BACLOFEN 10 MG TAB PO ONE (02:40)
[2021-02-02 04:27] LABS: Basophils % (A) 0 %; Eosinophils % (A) 0 %; HCT 37.1 % (39.0-53.0); HGB 12.7 gm/dL (13.0-17.5); Lymphocytes # (A) 1.6 k/uL (1.0-4.8); Lymphocytes % (A) 7 %; MCH 31.1 pg (25.0-35.0); MCHC 34.4 g/dL (31.0-37.0); MCV 90.6 fL (80.0-100.0); Mean Platelet Volume 8.7; Monocytes # (A) 1.8 k/uL (0-1.0); Monocytes % (A) 8 %; Neutrophils # (A) 19.2 k/uL (1.3-7.7); Neutrophils % (A) 84 %; Platelet Count 308 k/uL (150-450); RBC 4.09 m/uL (4.30-5.90); RDW 12.8 % (11.5-15.5); WBC 22.8 k/uL (3.8-10.6)
[2021-02-02 04:43] LABS: Albumin 2.7 g/dL (3.5-5.0); Calcium 7.3 mg/dL (8.4-10.2); Potassium 4.1 mmol/L (3.5-5.1); Total Bilirubin 0.4 mg/dL (0.2-1.3)
[2021-02-02] MEDS: SODIUM CHLORIDE 0.9% 1,000 ML IV SCH ×2 (08:28→20:11)
[2021-02-02] MEDS ORDERED: SODIUM CHLORIDE 0.9% 1,000 ML IV ONE ×2 (08:46→08:48)
[2021-02-02] MEDS ORDERED: PIPERACILLIN-TAZOBACTAM 3.375 GM in SODIUM CHLORIDE 0.9% 100 ML IVPB SCH (09:00)
--- NOTE | 2021-02-02 09:04 | XR ---
EXAMINATION TYPE: XR chest 1V DATE OF EXAM: 02/02/2021 COMPARISON: Chest x-ray 02/01/2021 HISTORY: Shortness of breath TECHNIQUE: Single frontal view of the chest is obtained. FINDINGS: The left costophrenic angle is not entirely included on exam. Generators present in left pe ctoral region, there are leads in the right atrium, right ventricle, coronary sinus. There is no foc al air space opacity, pleural effusion, or pneumothorax seen. The cardiac silhouette size is stable, mildly enlarged. The osseous structures are intact. IMPRESSION: No acute process.
--- NOTE | 2021-02-02 09:35 | P.NPCON ---
History of Present Illness - Reason for Consult acute renal failure, hyperkalemia - History of Present Illness Reason for consultation: Acute kidney injury History of present illness: I sent patient is a 60-year-old male seen in renal consultation for acute kidney injury. Patient presented to the hospital with generalized weakness as well as poor oral intake for about one week now. He was also complaining of abdominal discomfort which now seems to have improved. He denies vomiting but was having diarrhea prior to admission. Patient's creatinine on admission was 14.39. His baseline creatinine appears to be 1-1.2. Potassium level was elevated at 6.6. He was also profoundly acidotic with a bicarb level of less than 5. He was taking valsartan as well as spironolactone outpatient. No history of diabetes. Denies chest pain or shortness of breath. Patient underwent emergent hemodialysis last night. Urine output has not improved. He is maintained on bicarb drip. Acidosis is improved. No fever or chills. Currently on low-dose Levophed. Vital signs are stable. On Levophed. General: The patient appeared well nourished and normally developed. HEENT: Head exam is unremarkable. LUNGS: Lungs are clear to auscultation and percussion. Breath sounds decreased. HEART: Rate and Rhythm are regular. ABDOMEN: Soft, no distention. EXTREMITITES: No edema. Past Medical History Past Medical History: GERD/Reflux, Hyperlipidemia, Hypertension, Musculoskeletal Disorder, Osteoarthritis (OA) Additional Past Medical History / Comment(s): CHRONIC SINUS INFECTIONS. RAFAT,CARDIOVERSION/ABLATION; DEG. DISCS History of Any Multi-Drug Resistant Organisms: None Reported Past Surgical History: Ablation, Pacemaker Additional Past Surgical History / Comment(s): FIRST SURGERY Past Anesthesia/Blood Transfusion Reactions: No Reported Reaction Additional Past Anesthesia/Blood Transfusion Reaction / Comment(s): PATIENT HAS NEVER HAD ANESTHESIA. Type of Cardiac Device: Permanent Pacemaker Device Placement Date:: 2014 Past Psychological History: Anxiety Additional Psychological History / Comment(s): RECENTLY LOST HIS JOB. Smoking Status: Current some day smoker Past Alcohol Use History: Rare Additional Past Alcohol Use History / Comment(s): PT HAS SMOKED FOR 40 YEARS, 1 PPD AND OCC SMOKES MARIJUANA Past Drug Use History: Marijuana - Past Family History Father Additional Family Medical History / Comment(s): HEART TRANSPLANT. Sister(s) Additional Family Medical History / Comment(s): BRAIN ANEURYSM (SURGERY WAS SUCCESSFUL). Medications and Allergies Home Medications Medication Instructions Recorded Confirmed Type Loratadine 10 mg PO DAILY 07/22/14 02/01/21 History Multivitamins, Thera [Multivitamin 1 tab PO DAILY 07/22/14 02/01/21 History (formulary)] clonazePAM [Clonazepam] 2 mg PO HS 07/22/14 02/01/21 History amLODIPine [Norvasc] 10 mg PO DAILY 09/06/14 02/01/21 History Atorvastatin [Lipitor] 20 mg PO HS 11/03/14 02/01/21 History Metoprolol Succinate (ER) [Toprol 100 mg PO DAILY #30 tab.er.24h 11/08/14 02/01/21 Rx XL] Baclofen [Lioresal] 10 mg PO BID 06/19/18 02/01/21 History Fenofibrate Nanocrystallized 145 mg PO DAILY 06/19/18 02/01/21 History [Fenofibrate] HYDROcodone/APAP 10-325MG [[place] 1 tab PO BID 06/19/18 02/01/21 History 10-325] Rivaroxaban [Xarelto] 20 mg PO W/SUPPER 06/19/18 02/01/21 History Morphine Sulfate ER [Ms Contin] 15 mg PO DAILY 02/01/21 02/01/21 History Omeprazole 20 mg PO BID 02/01/21 02/01/21 History Spironolactone-Hctz 25-25Mg 1 tab PO DAILY 02/01/21 02/01/21 History [Aldactazide 25-25Mg] Valsartan 320 mg PO DAILY 02/01/21 02/01/21 History Allergies Allergy/AdvReac Type Severity Reaction Status Date / Time cephalexin monohydrate Allergy Rash/Hives Verified 02/01/21 15:22 [From Keflex] Physical Exam Vitals: Vital Signs Temp Pulse Pulse Resp BP BP Pulse Ox 02/02/21 09:00 92 10 L 112/71 96 02/02/21 08:45 92 6 L 93/63 02/02/21 08:30 89 11 L 111/59 95 02/02/21 08:15 84 15 118/46 95 02/02/21 08:00 98.2 F 86 12 112/63 95 02/02/21 07:45 79 28 H 88/45 96 02/02/21 07:30 85 24 108/64 93 L 02/02/21 07:00 84 19 108/60 93 L 02/02/21 06:45 92 15 95 02/02/21 06:30 80 23 95/59 96 02/02/21 06:15 79 16 85/58 92 L 02/02/21 06:00 75 19 113/60 93 L 02/02/21 05:45 77 18 117/72 93 L 02/02/21 05:30 75 19 94/54 93 L 02/02/21 05:15 78 13 129/63 94 L 02/02/21 05:00 86 11 L 129/63 95 02/02/21 04:45 75 11 L 112/58 94 L 02/02/21 04:30 79 13 106/54 93 L 02/02/21 04:15 82 20 126/89 96 02/02/21 04:00 98.2 F 72 9 L 103/54 96 02/02/21 03:45 80 12 122/65 95 02/02/21 03:30 77 15 112/46 93 L 02/02/21 03:15 78 14 121/91 93 L 02/02/21 03:00 76 13 114/59 95 02/02/21 02:45 72 14 104/55 95 02/02/21 02:30 76 10 L 110/56 96 02/02/21 02:15 79 13 117/54 94 L 02/02/21 02:00 76 20 94/47 96 02/02/21 01:45 76 16 82/64 94 L 02/02/21 01:30 81 22 125/66 96 02/02/21 01:15 78 11 L 125/66 95 02/02/21 01:00 76 19 120/62 95 02/02/21 00:45 76 20 104/57 95 02/02/21 00:30 78 13 96/49 94 L 02/02/21 00:20 72 12 96 02/02/21 00:16 78 15 101/64 95 02/02/21 00:00 98.5 F 76 15 122/79 95 02/01/21 23:45 77 15 96 02/01/21 23:30 82 32 H 118/65 96 02/01/21 23:15 92 24 121/62 96 02/01/21 23:00 69 14 118/60 96 02/01/21 22:45 73 15 95/51 94 L 02/01/21 22:30 71 13 101/54 97 02/01/21 22:15 73 13 93/49 97 02/01/21 22:09 98.1 F 80 18 105/86 02/01/21 22:00 73 13 108/68 96 02/01/21 21:45 73 12 86/68 96 02/01/21 21:30 74 17 105/86 97 02/01/21 21:15 87 18 107/76 95 02/01/21 21:00 73 14 107/52 95 02/01/21 20:45 81 22 75/62 97 02/01/21 20:30 79 17 94/73 95 02/01/21 20:15 80 15 89/57 95 02/01/21 20:00 98.8 F 85 15 93/66 95 02/01/21 19:45 85 13 103/52 96 02/01/21 19:30 80 14 82/41 95 02/01/21 19:15 91 12 85/49 95 02/01/21 19:00 78 11 L 99/61 02/01/21 18:45 86 11 L 99/61 96 02/01/21 18:30 92 99/61 95 02/01/21 18:09 98.2 F 89 15 99/61 96 02/01/21 17:37 80 18 109/62 98 02/01/21 17:28 75 02/01/21 17:22 76 02/01/21 15:43 97.4 F L 72 18 126/60 97 02/01/21 13:15 96.9 F L 67 18 132/86 96 Intake and Output 02/01/21 02/02/21 02/02/21 22:59 06:59 14:59 Intake Total 5310.735 7032.349 1755.115 Output Total 542 560 200 Balance 729.144 761.197 7764.115 Intake: IV 900 1200 550 Dextrose 5% in Water 1, 900 1200 300 000 ml @ 150 mls/hr IV . Q7H40M INGRID with Sodium Bicarb (1 Meq/ml) 150 ml Rx#:[id number] Sodium Chloride 0.9% 1, 250 000 ml @ 125 mls/hr IV . Q8H [facility] Rx#:[id number] Intake, IV Titration 71.144 791.914 0680.115 Amount Norepinephrine 4 mg In 71.144 160.349 205.115 Sodium Chloride 0.9% 250 ml @ 0.05 MCG/KG/MIN 16. 418 mls/hr IV .[id number] [facility] Rx#:[id number] Sodium Chloride 0.9% 1, 1000 000 ml @ 999 mls/hr IV . Q1H1M [facility] Rx#:[id number] Hemodialysis 300 Output: Urine 242 560 200 Hemodialysis 300 Other: Voiding Method Indwelling Catheter Indwelling Catheter Indwelling Catheter Weight 86.183 kg 86.7 kg Results - Lab Results Most recent lab results Calcium 7.3 mg/dL (8.4-10.2) L 02/02/21 03:59 02/02/21 03:59 02/02/21 03:59 Assessment and Plan Plan: Assessment: 1. Acute kidney injury secondary to ATN secondary to hypovolemia and hypotension. Creatinine was over 14 on admission. Baseline creatinine appears to be in the range of 1-1.2. No hydronephrosis noted on CAT scan. 2. Metabolic acidosis secondary to acute kidney injury and GI losses. Improved. 3. Hyperkalemia secondary to acute kidney injury, metabolic acidosis as well as valsartan and spironolactone. Improved postdialysis. 4. Hypovolemic hyponatremia. 5. Elevated amylase and lipase concerning for pancreatitis. Plan: Change bicarb drip to normal saline. Second treatment of hemodialysis today. Plan to hold dialysis over the weekend and monitor for renal recovery. Follow-up echocardiogram. Wean Levophed. Continue to hold all antihypertensives. Thank you for the consultation. I will continue to follow the patient with you during his hospital stay.
--- NOTE | 2021-02-02 10:33 | P.HPIM ---
History of Present Illness Patient was a 60-year-old male came in with complaints of severe crampy lower abdominal pain which started yesterday patient abdominal pain preceded by flulike symptoms without any fever and diarrhea. Patient does have history of atrial fibrillation and is on anticoagulation with xarelto. In ER patient is found to have acute renal failure with creatinine going up to 8.84 and be ongoing up to 170 and patient was having multiple episodes of nausea vomiting. Patient was subsequently admitted patient received emergent dialysis catheter placement underwent dialysis yesterday after which his creatinine did improve to 8.07 and BNP 128. Patient was hypotensive. Patient is on multiple medications that can affect the kidney including the valsartan, spironolactone. Patient is also hypotensive leading to possibly acute tubular necrosis. Patient is presently on bicarbonate drip and pressor support with norepinephrine for severe metabolic acidosis from uremia and hypotension and shock respectively. Patient doesn't have any other evidence of infection except for viral gastroenteritis patient had a CT of the abdomen which is consistent with mild enterocolitis and gastroenteritis. Patient although started empirically on Zosyn by neurourologist. Patient does have leukocytosis of 22,000. Infectious disease was consulted from ER as well. Patient was noted to have dark stools and blood in the stools today morning secondary to being on anticoagulation and uremic bleed causing platelet dysfunction because of which patient is being given desmopressin. Patient basically had viral gastroenteritis which led to hypokalemia and a every 2 blood necrosis secondary to hypotension and patient is also on diuretics and DOROTEO inhibitor which led to acute renal failure from acute blood necrosis. Patient is on anticoagulation along with platelet dysfunction from uremia leading to GI bleed. REVIEW OF SYSTEMS: CONSTITUTIONAL: No fever,. HEENT: No recent visual problems or hearing problems. Denied any sore throat. CARDIOVASCULAR: No chest pain, orthopnea, PND, no palpitations, no syncope. PULMONARY: No shortness of breath, no cough, no hemoptysis. GASTROINTESTINAL: As mentioned in HPI NEUROLOGICAL: No headaches, no weakness, no numbness. HEMATOLOGICAL: Denies any bleeding or petechiae. GENITOURINARY: Denies any burning micturition, frequency, or urgency. MUSCULOSKELETAL/RHEUMATOLOGICAL: Denies any joint pain, swelling, or any muscle pain. ENDOCRINE: Denies any polyuria or polydipsia. The rest of the 14-point review of systems is negative. PHYSICAL EXAMINATION: GENERAL: The patient is alert and oriented x3, not in any acute distress. Well developed, well nourished. HEENT: Pupils are round and equally reacting to light. EOMI. No scleral icterus. No conjunctival pallor. Normocephalic, atraumatic. No pharyngeal erythema. No thyromegaly. CARDIOVASCULAR: S1 and S2 present. No murmurs, rubs, or gallops. PULMONARY: Chest is clear to auscultation, no wheezing or crackles. ABDOMEN: Soft, mild tenderness in the right lower quadrant, nondistended, normoactive bowel sounds. No palpable organomegaly. MUSCULOSKELETAL: No joint swelling or deformity. EXTREMITIES: No cyanosis, clubbing, or pedal edema. NEUROLOGICAL: Gross neurological examination did not reveal any focal deficits. SKIN: No rashes. Assessment and plan -Acute renal failure secondary to acute blood necrosis from hypotension and diuretics along with DOROTEO inhibitor. Patient had emergent dialysis last night will undergo hemodialysis again today. Patient is presently on bicarbonate drip. -Hypovolemic shock: I do not believe patient has sepsis or septic shock at this time patient will be continued on norepinephrine which will be weaned off as tolerated next and-leukocytosis reactive seconded to viral gastroenteritis and GI bleed no evidence of infection at this time but for now will continue with the antibiotics that were ordered by neurourologist. Probably can be discontinued tomorrow. -Leukocytosis reactive as mentioned above -Severe anion gap metabolic acidosis secondary to uremia -Hypovolemic hyponatremia -Hyperkalemia secondary to acute renal failure and acute tubular necrosis -Atrial fibrillation on anti-correlation as mentioned above which will be held patient is presently atrial fibrillation but rate controlled. Patient's metoprolol is being held as well along with the other antidepressant medications -Hypertension: Holding off antidepressant medications because of shock -Acute GI bleed secondary to platelet dysfunction from uremia along with anticoagulation patient will be continued on Protonix twice a day as patient had upper GI bleed with dark stools and some blood in the stools -Hyperlipidemia DVT prophylaxis: No pharmacological DVT prophylaxis because of GI bleed at this time Past Medical History Past Medical History: GERD/Reflux, Hyperlipidemia, Hypertension, Musculoskeletal Disorder, Osteoarthritis (OA) Additional Past Medical History / Comment(s): CHRONIC SINUS INFECTIONS. RAFAT,CARDIOVERSION/ABLATION; DEG. DISCS History of Any Multi-Drug Resistant Organisms: None Reported Past Surgical History: Ablation, Pacemaker Additional Past Surgical History / Comment(s): FIRST SURGERY Past Anesthesia/Blood Transfusion Reactions: No Reported Reaction Additional Past Anesthesia/Blood Transfusion Reaction / Comment(s): PATIENT HAS NEVER HAD ANESTHESIA. Type of Cardiac Device: Permanent Pacemaker Device Placement Date:: 2014 Past Psychological History: Anxiety Additional Psychological History / Comment(s): RECENTLY LOST HIS JOB. Smoking Status: Current some day smoker Past Alcohol Use History: Rare Additional Past Alcohol Use History / Comment(s): PT HAS SMOKED FOR 40 YEARS, 1 PPD AND OCC SMOKES MARIJUANA Past Drug Use History: Marijuana - Past Family History Father Additional Family Medical History / Comment(s): HEART TRANSPLANT. Sister(s) Additional Family Medical History / Comment(s): BRAIN ANEURYSM (SURGERY WAS SUCCESSFUL). Medications and Allergies Home Medications Medication Instructions Recorded Confirmed Type Loratadine 10 mg PO DAILY 07/22/14 02/01/21 History Multivitamins, Thera [Multivitamin 1 tab PO DAILY 07/22/14 02/01/21 History (formulary)] clonazePAM [Clonazepam] 2 mg PO HS 07/22/14 02/01/21 History amLODIPine [Norvasc] 10 mg PO DAILY 09/06/14 02/01/21 History Atorvastatin [Lipitor] 20 mg PO HS 11/03/14 02/01/21 History Metoprolol Succinate (ER) [Toprol 100 mg PO DAILY #30 tab.er.24h 11/08/14 02/01/21 Rx XL] Baclofen [Lioresal] 10 mg PO BID 06/19/18 02/01/21 History Fenofibrate Nanocrystallized 145 mg PO DAILY 06/19/18 02/01/21 History [Fenofibrate] HYDROcodone/APAP 10-325MG [[place] 1 tab PO BID 06/19/18 02/01/21 History 10-325] Rivaroxaban [Xarelto] 20 mg PO W/SUPPER 06/19/18 02/01/21 History Morphine Sulfate ER [Ms Contin] 15 mg PO DAILY 02/01/21 02/01/21 History Omeprazole 20 mg PO BID 02/01/21 02/01/21 History Spironolactone-Hctz 25-25Mg 1 tab PO DAILY 02/01/21 02/01/21 History [Aldactazide 25-25Mg] Valsartan 320 mg PO DAILY 02/01/21 02/01/21 History Allergies Allergy/AdvReac Type Severity Reaction Status Date / Time cephalexin monohydrate Allergy Rash/Hives Verified 02/01/21 15:22 [From Keflex] Physical Exam Vitals: Vital Signs Temp Pulse Pulse Resp BP BP Pulse Ox 02/02/21 10:00 84 16 100/48 02/02/21 09:45 81 7 L 86/66 94 L 02/02/21 09:30 85 12 95/57 02/02/21 09:15 90 14 127/77 02/02/21 09:00 92 10 L 112/71 96 02/02/21 08:45 92 6 L 93/63 02/02/21 08:30 89 11 L 111/59 95 02/02/21 08:15 84 15 118/46 95 02/02/21 08:00 98.2 F 86 12 112/63 95 02/02/21 07:45 79 28 H 88/45 96 02/02/21 07:30 85 24 108/64 93 L 02/02/21 07:00 84 19 108/60 93 L 02/02/21 06:45 92 15 95 02/02/21 06:30 80 23 95/59 96 02/02/21 06:15 79 16 85/58 92 L 02/02/21 06:00 75 19 113/60 93 L 02/02/21 05:45 77 18 117/72 93 L 02/02/21 05:30 75 19 94/54 93 L 02/02/21 05:15 78 13 129/63 94 L 02/02/21 05:00 86 11 L 129/63 95 02/02/21 04:45 75 11 L 112/58 94 L 02/02/21 04:30 79 13 106/54 93 L 02/02/21 04:15 82 20 126/89 96 02/02/21 04:00 98.2 F 72 9 L 103/54 96 02/02/21 03:45 80 12 122/65 95 02/02/21 03:30 77 15 112/46 93 L 02/02/21 03:15 78 14 121/91 93 L 02/02/21 03:00 76 13 114/59 95 02/02/21 02:45 72 14 104/55 95 02/02/21 02:30 76 10 L 110/56 96 02/02/21 02:15 79 13 117/54 94 L 02/02/21 02:00 76 20 94/47 96 02/02/21 01:45 76 16 82/64 94 L 02/02/21 01:30 81 22 125/66 96 02/02/21 01:15 78 11 L 125/66 95 02/02/21 01:00 76 19 120/62 95 02/02/21 00:45 76 20 104/57 95 02/02/21 00:30 78 13 96/49 94 L 02/02/21 00:20 72 12 96 02/02/21 00:16 78 15 101/64 95 02/02/21 00:00 98.5 F 76 15 122/79 95 02/01/21 23:45 77 15 96 02/01/21 23:30 82 32 H 118/65 96 02/01/21 23:15 92 24 121/62 96 02/01/21 23:00 69 14 118/60 96 02/01/21 22:45 73 15 95/51 94 L 02/01/21 22:30 71 13 101/54 97 02/01/21 22:15 73 13 93/49 97 02/01/21 22:09 98.1 F 80 18 105/86 02/01/21 22:00 73 13 108/68 96 02/01/21 21:45 73 12 86/68 96 02/01/21 21:30 74 17 105/86 97 02/01/21 21:15 87 18 107/76 95 02/01/21 21:00 73 14 107/52 95 02/01/21 20:45 81 22 75/62 97 02/01/21 20:30 79 17 94/73 95 02/01/21 20:15 80 15 89/57 95 02/01/21 20:00 98.8 F 85 15 93/66 95 02/01/21 19:45 85 13 103/52 96 02/01/21 19:30 80 14 82/41 95 02/01/21 19:15 91 12 85/49 95 02/01/21 19:00 78 11 L 99/61 02/01/21 18:45 86 11 L 99/61 96 02/01/21 18:30 92 99/61 95 02/01/21 18:09 98.2 F 89 15 99/61 96 02/01/21 17:37 80 18 109/62 98 02/01/21 17:28 75 02/01/21 17:22 76 02/01/21 15:43 97.4 F L 72 18 126/60 97 02/01/21 13:15 96.9 F L 67 18 132/86 96 Intake and Output 02/01/21 02/02/21 02/02/21 22:59 06:59 14:59 Intake Total 5377.305 1521.349 1880.115 Output Total 542 560 475 Balance 729.144 169.293 1467.115 Intake: IV 900 1200 675 Dextrose 5% in Water 1, 900 1200 300 000 ml @ 150 mls/hr IV . Q7H40M INGRID with Sodium Bicarb (1 Meq/ml) 150 ml Rx#:[id number] Sodium Chloride 0.9% 1, 375 000 ml @ 125 mls/hr IV . Q8H INGRID Rx#:[id number] Intake, IV Titration 71.144 460.987 8132.115 Amount Norepinephrine 4 mg In 71.144 160.349 205.115 Sodium Chloride 0.9% 250 ml @ 0.05 MCG/KG/MIN 16. 418 mls/hr IV .[id number] INGRID Rx#:[id number] Sodium Chloride 0.9% 1, 1000 000 ml @ 999 mls/hr IV . Q1H1M ONE Rx#:[id number] Hemodialysis 300 Output: Urine 242 560 275 Stool 200 Hemodialysis 300 Other: Voiding Method Indwelling Catheter Indwelling Catheter Indwelling Catheter Weight 86.183 kg 86.7 kg Results CBC & Chem 7: 02/02/21 03:59 02/02/21 03:59 Labs: Abnormal Lab Results - Last 24 Hours (Table) 02/01/21 02/01/21 02/01/21 Range/Units 13:44 13:44 13:44 WBC 27.1 H (3.8-10.6) k/uL RBC (4.30-5.90) m/uL Hgb (13.0-17.5) gm/dL Hct (39.0-53.0) % Neutrophils # 23.9 H (1.3-7.7) k/uL Monocytes # 1.4 H (0-1.0) k/uL VBG pH (7.31-7.41) VBG pCO2 (37-51) mmHg VBG HCO3 (24-28) mmol/L Sodium 132 L (137-145) mmol/L Potassium 6.6 H* (3.5-5.1) mmol/L Chloride 94 L (98-107) mmol/L Carbon Dioxide <5 L* (22-30) mmol/L BUN 170 H* (9-20) mg/dL Creatinine 14.39 H* (0.66-1.25) mg/dL Glucose 155 H (74-99) mg/dL Calcium (8.4-10.2) mg/dL Alkaline Phosphatase (38-126) U/L Total Protein (6.3-8.2) g/dL Albumin (3.5-5.0) g/dL Amylase 345 H* (30-110) U/L Lipase 1635 H (23-300) U/L Urine Protein 1+ H (Negative) Urine Blood Moderate H (Negative) Ur Leukocyte Esterase Trace H (Negative) Urine WBC 9 H (0-5) /hpf Urine Bacteria Rare H (None) /hpf Hyaline Casts 35 H (0-2) /lpf Urine Mucus Rare H (None) /hpf 02/01/21 02/01/21 02/01/21 Range/Units 15:39 16:46 23:38 WBC 29.3 H (3.8-10.6) k/uL RBC (4.30-5.90) m/uL Hgb (13.0-17.5) gm/dL Hct (39.0-53.0) % Neutrophils # 25.2 H (1.3-7.7) k/uL Monocytes # 2.2 H (0-1.0) k/uL VBG pH 7.16 L* (7.31-7.41) VBG pCO2 33 L (37-51) mmHg VBG HCO3 11 L (24-28) mmol/L Sodium (137-145) mmol/L Potassium 6.2 H* (3.5-5.1) mmol/L Chloride (98-107) mmol/L Carbon Dioxide (22-30) mmol/L BUN (9-20) mg/dL Creatinine (0.66-1.25) mg/dL Glucose (74-99) mg/dL Calcium (8.4-10.2) mg/dL Alkaline Phosphatase (38-126) U/L Total Protein (6.3-8.2) g/dL Albumin (3.5-5.0) g/dL Amylase (30-110) U/L Lipase (23-300) U/L Urine Protein (Negative) Urine Blood (Negative) Ur Leukocyte Esterase (Negative) Urine WBC (0-5) /hpf Urine Bacteria (None) /hpf Hyaline Casts (0-2) /lpf Urine Mucus (None) /hpf 02/01/21 02/02/21 02/02/21 Range/Units 23:38 03:59 03:59 WBC 22.8 H (3.8-10.6) k/uL RBC 4.09 L (4.30-5.90) m/uL Hgb 12.7 L (13.0-17.5) gm/dL Hct 37.1 L (39.0-53.0) % Neutrophils # 19.2 H (1.3-7.7) k/uL Monocytes # 1.8 H (0-1.0) k/uL VBG pH (7.31-7.41) VBG pCO2 (37-51) mmHg VBG HCO3 (24-28) mmol/L Sodium 130 L 133 L (137-145) mmol/L Potassium (3.5-5.1) mmol/L Chloride (98-107) mmol/L Carbon Dioxide 12 L 18 L (22-30) mmol/L BUN 128 H* (9-20) mg/dL Creatinine 8.84 H* 8.07 H* (0.66-1.25) mg/dL Glucose 133 H 128 H (74-99) mg/dL Calcium 7.7 L 7.3 L (8.4-10.2) mg/dL Alkaline Phosphatase 29 L 32 L (38-126) U/L Total Protein 5.3 L 5.0 L (6.3-8.2) g/dL Albumin 2.9 L 2.7 L (3.5-5.0) g/dL Amylase (30-110) U/L Lipase (23-300) U/L Urine Protein (Negative) Urine Blood (Negative) Ur Leukocyte Esterase (Negative) Urine WBC (0-5) /hpf Urine Bacteria (None) /hpf Hyaline Casts (0-2) /lpf Urine Mucus (None) /hpf Thrombosis Risk Factor Assmnt - Choose All That Apply Any of the Below Risk Factors Present?: No
[2021-02-02] MEDS ORDERED: DESMOPRESSIN ACETATE 24 MCG in SODIUM CHLORIDE 0.9% 50 ML IVPB ONE (11:00)
--- NOTE | 2021-02-02 11:01 | ECHOF ---
Referral Reason:htn MEASUREMENTS -------- HEIGHT: 177.8 cm WEIGHT: 86.6 kg BP: RVIDd: 3.0 cm (< 3.3) IVSd: 1.5 cm (0.6 - 1.1) LVIDd: 5.1 cm (3.9 - 5.3) LVPWd: 1.4 cm (0.6 - 1.1) IVSs: 2.1 cm LVIDs: 3.2 cm LVPWs: 1.9 cm LA Diam: 3.1 cm (2.7 - 3.8) Ao Diam: 3.8 cm (2.0 - 3.7) AV Cusp: 2.2 cm (1.5 - 2.6) MV EXCURSION: 17.354 mm (> 18.000) MV EF SLOPE: 73 mm/s (70 - 150) EPSS: 0.5 cm MV E Derek: 0.54 m/s MV DecT: 289 ms MV A Derek: 0.67 m/s MV E/A Ratio: 0.81 AR PHT: 548 ms RAP: 5.00 mmHg RVSP: 24.21 mmHg FINDINGS -------- Paced rhythm. This was a technically adequate study. The left ventricular size is normal. There is moderate concentric left ventricular hypertrophy. O verall left ventricular systolic function is normal with, an EF between 60 - 65 %. The right ventricle is normal in size. The left atrium is normal in size. The right atrium is normal in size. Interatrial and interventricular septum intact. The aortic valve was not well visualized. Mild mitral regurgitation is present. Mild tricuspid regurgitation present. Right ventricular systolic pressure is normal at < 35 mmHg. The pulmonic valve was not well visualized. The aortic root is dilated measuring 3.8cm. Normal inferior vena cava with normal inspiratory collapse consistent with estimated right atrial pre ssure of 5 mmHg. There is no pericardial effusion. CONCLUSIONS -------- 1. The left ventricular size is normal. 2. There is moderate concentric left ventricular hypertrophy. 3. Overall left ventricular systolic function is normal with, an EF between 60 - 65 %. 4. Mild mitral regurgitation is present. 5. Mild tricuspid regurgitation present. 6. The aortic root is dilated measuring 3.8cm. 7. There is no pericardial effusion. SAL[employer]ERSON [employer]: Tressa Orellana RDCS
[2021-02-02 12:22] LABS: Glucose,Whole Blood 105 mg/dL (75-99)
--- NOTE | 2021-02-02 12:26 | P.CNPUL ---
History of Present Illness Consult date: 02/02/21 Requesting physician: Renee Cain Reason for consult: other (Possible sepsis with hyperkalemia and metabolic acidosis, and acute kidney injury.) Chief complaint: Abdominal pain History of present illness: This is a 60-year-old white male with history of cardiac arrhythmia/atrial fibrillation, and history of pacemaker implantation, maintained on anticoagulation therapy/Xarelto. Patient came in yesterday to the ER with a few days' history of severe crampy lower abdominal pain. Patient also had some flulike symptoms with mostly generalized weakness. Patient had intermittent episodes of diarrhea, intermittent episodes of nausea and vomiting, and he was not eating much. Denies any history of alcohol abuse. Patient is not a drinker. Patient was urged by his family members to go to the ER since his symptoms have lasted for over 3 days. And he was not getting any better. When the patient arrived to the ER yesterday, patient was noted to have leukocytosis with WBC count of 29.3, he was metabolically acidotic with bicarb of 12 and anion gap of 16. BUN was elevated, and creatinine of 14.39. Serum amylase was 345 and serum lipase was 1635. Patient had negative PCR for COVID-19 infection. Liver enzymes were relatively normal. Potassium on admission was 6.6, hence the patient had emergent hemodialysis done by nephrology, and patient was admitted to the ICU. Required more fluids for hypotension. Required low-dose norepinephrine for hypotension and he is presently on 0.05 mcg/kg/m, his IV fluid is presently at 1 25 mL/h, and his sodium bicarb was discontinued earlier this morning. denies any history of kidney disease, he does smoke but does not drink any alcohol. Cultures are pending. Patient is empirically on antibiotics in the form of Zosyn presently. Review of Systems CONSTITUTIONAL: Weakness and fatigue. HEENT: Negative. CARDIOVASCULAR: Negative PULMONARY: No shortness of breath cough or wheezing no chest pain. GASTROINTESTINAL: As noted in HPI. NEUROLOGICAL: Negative HEMATOLOGICAL: Negative GENITOURINARY: Negative MUSCULOSKELETAL/RHEUMATOLOGICAL: Negative ENDOCRINE: Negative Past Medical History Past Medical History: GERD/Reflux, Hyperlipidemia, Hypertension, Musculoskeletal Disorder, Osteoarthritis (OA) Additional Past Medical History / Comment(s): CHRONIC SINUS INFECTIONS. RAFAT,CARDIOVERSION/ABLATION; DEG. DISCS History of Any Multi-Drug Resistant Organisms: None Reported Past Surgical History: Ablation, Pacemaker Additional Past Surgical History / Comment(s): FIRST SURGERY Past Anesthesia/Blood Transfusion Reactions: No Reported Reaction Additional Past Anesthesia/Blood Transfusion Reaction / Comment(s): PATIENT HAS NEVER HAD ANESTHESIA. Type of Cardiac Device: Permanent Pacemaker Device Placement Date:: 2014 Past Psychological History: Anxiety Additional Psychological History / Comment(s): RECENTLY LOST HIS JOB. Smoking Status: Current some day smoker Past Alcohol Use History: Rare Additional Past Alcohol Use History / Comment(s): PT HAS SMOKED FOR 40 YEARS, 1 PPD AND OCC SMOKES MARIJUANA Past Drug Use History: Marijuana - Past Family History Father Additional Family Medical History / Comment(s): HEART TRANSPLANT. Sister(s) Additional Family Medical History / Comment(s): BRAIN ANEURYSM (SURGERY WAS SUCCESSFUL). Medications and Allergies Home Medications Medication Instructions Recorded Confirmed Type Loratadine 10 mg PO DAILY 07/22/14 02/01/21 History Multivitamins, Thera [Multivitamin 1 tab PO DAILY 07/22/14 02/01/21 History (formulary)] clonazePAM [Clonazepam] 2 mg PO HS 07/22/14 02/01/21 History amLODIPine [Norvasc] 10 mg PO DAILY 09/06/14 02/01/21 History Atorvastatin [Lipitor] 20 mg PO HS 11/03/14 02/01/21 History Metoprolol Succinate (ER) [Toprol 100 mg PO DAILY #30 tab.er.24h 11/08/14 02/01/21 Rx XL] Baclofen [Lioresal] 10 mg PO BID 06/19/18 02/01/21 History Fenofibrate Nanocrystallized 145 mg PO DAILY 06/19/18 02/01/21 History [Fenofibrate] HYDROcodone/APAP 10-325MG [[place] 1 tab PO BID 06/19/18 02/01/21 History 10-325] Rivaroxaban [Xarelto] 20 mg PO W/SUPPER 06/19/18 02/01/21 History Morphine Sulfate ER [Ms Contin] 15 mg PO DAILY 02/01/21 02/01/21 History Omeprazole 20 mg PO BID 02/01/21 02/01/21 History Spironolactone-Hctz 25-25Mg 1 tab PO DAILY 02/01/21 02/01/21 History [Aldactazide 25-25Mg] Valsartan 320 mg PO DAILY 02/01/21 02/01/21 History Allergies Allergy/AdvReac Type Severity Reaction Status Date / Time cephalexin monohydrate Allergy Rash/Hives Verified 02/01/21 15:22 [From Keflex] Physical Exam Vitals: Vital Signs Temp Pulse Pulse Resp BP BP Pulse Ox 02/02/21 10:00 84 16 100/48 02/02/21 09:45 81 7 L 86/66 94 L 02/02/21 09:30 85 12 95/57 02/02/21 09:15 90 14 127/77 02/02/21 09:00 92 10 L 112/71 96 02/02/21 08:45 92 6 L 93/63 02/02/21 08:30 89 11 L 111/59 95 02/02/21 08:15 84 15 118/46 95 02/02/21 08:00 98.2 F 86 12 112/63 95 02/02/21 07:45 79 28 H 88/45 96 02/02/21 07:30 85 24 108/64 93 L 02/02/21 07:00 84 19 108/60 93 L 02/02/21 06:45 92 15 95 02/02/21 06:30 80 23 95/59 96 02/02/21 06:15 79 16 85/58 92 L 02/02/21 06:00 75 19 113/60 93 L 02/02/21 05:45 77 18 117/72 93 L 02/02/21 05:30 75 19 94/54 93 L 02/02/21 05:15 78 13 129/63 94 L 02/02/21 05:00 86 11 L 129/63 95 02/02/21 04:45 75 11 L 112/58 94 L 02/02/21 04:30 79 13 106/54 93 L 02/02/21 04:15 82 20 126/89 96 02/02/21 04:00 98.2 F 72 9 L 103/54 96 02/02/21 03:45 80 12 122/65 95 02/02/21 03:30 77 15 112/46 93 L 02/02/21 03:15 78 14 121/91 93 L 02/02/21 03:00 76 13 114/59 95 02/02/21 02:45 72 14 104/55 95 02/02/21 02:30 76 10 L 110/56 96 02/02/21 02:15 79 13 117/54 94 L 02/02/21 02:00 76 20 94/47 96 02/02/21 01:45 76 16 82/64 94 L 02/02/21 01:30 81 22 125/66 96 02/02/21 01:15 78 11 L 125/66 95 02/02/21 01:00 76 19 120/62 95 02/02/21 00:45 76 20 104/57 95 02/02/21 00:30 78 13 96/49 94 L 02/02/21 00:20 72 12 96 02/02/21 00:16 78 15 101/64 95 02/02/21 00:00 98.5 F 76 15 122/79 95 02/01/21 23:45 77 15 96 02/01/21 23:30 82 32 H 118/65 96 02/01/21 23:15 92 24 121/62 96 02/01/21 23:00 69 14 118/60 96 02/01/21 22:45 73 15 95/51 94 L 02/01/21 22:30 71 13 101/54 97 02/01/21 22:15 73 13 93/49 97 02/01/21 22:09 98.1 F 80 18 105/86 02/01/21 22:00 73 13 108/68 96 02/01/21 21:45 73 12 86/68 96 02/01/21 21:30 74 17 105/86 97 02/01/21 21:15 87 18 107/76 95 02/01/21 21:00 73 14 107/52 95 02/01/21 20:45 81 22 75/62 97 02/01/21 20:30 79 17 94/73 95 02/01/21 20:15 80 15 89/57 95 02/01/21 20:00 98.8 F 85 15 93/66 95 02/01/21 19:45 85 13 103/52 96 02/01/21 19:30 80 14 82/41 95 02/01/21 19:15 91 12 85/49 95 02/01/21 19:00 78 11 L 99/61 02/01/21 18:45 86 11 L 99/61 96 02/01/21 18:30 92 99/61 95 02/01/21 18:09 98.2 F 89 15 99/61 96 02/01/21 17:37 80 18 109/62 98 02/01/21 17:28 75 02/01/21 17:22 76 02/01/21 15:43 97.4 F L 72 18 126/60 97 02/01/21 13:15 96.9 F L 67 18 132/86 96 Intake and Output 02/01/21 02/02/21 02/02/21 22:59 06:59 14:59 Intake Total 5751.811 8378.349 1880.115 Output Total 542 560 475 Balance 729.144 697.461 4787.115 Intake: IV 900 1200 675 Dextrose 5% in Water 1, 900 1200 300 000 ml @ 150 mls/hr IV . Q7H40M INGRID with Sodium Bicarb (1 Meq/ml) 150 ml Rx#:[id number] Sodium Chloride 0.9% 1, 375 000 ml @ 125 mls/hr IV . Q8H INGRID Rx#:[id number] Intake, IV Titration 71.144 348.012 6665.115 Amount Norepinephrine 4 mg In 71.144 160.349 205.115 Sodium Chloride 0.9% 250 ml @ 0.05 MCG/KG/MIN 16. 418 mls/hr IV .[id number] INGRID Rx#:[id number] Sodium Chloride 0.9% 1, 1000 000 ml @ 999 mls/hr IV . Q1H1M ONE Rx#:[id number] Hemodialysis 300 Output: Urine 242 560 275 Stool 200 Hemodialysis 300 Other: Voiding Method Indwelling Catheter Indwelling Catheter Indwelling Catheter Weight 86.183 kg 86.7 kg Physical Exam: Revealed a 60-year-old white male, pleasant, in no distress, patient stated that he feels much better today compared to how he felt yesterday on admission. Even his abdominal pain has resolved. Head: Atraumatic, normocephalic. HEENT:[Neck is supple.] [No neck masses.] [No thyromegaly.] [No JVD.] Chest: [Clear throughout, no crackles, no rhonchi, no wheezes.] Cardiac Exam: [Normal S1 and S2, no S3 gallop, no murmur.] Abdomen: [Soft, nontender, no megaly, no rebound, no guarding, normal bowel sounds.] Extremities: [No clubbing, no edema, no cyanosis.] Neurological Exam: [No focal neurologic deficit.] Alert oriented 3. Skin: No rashes. Psychiatric: Normal mood affect and normal mental status examination. Results - Laboratory Findings CBC and BMP: 02/02/21 03:59 02/02/21 03:59 PT/INR, D-dimer PT 11.8 sec (9.0-12.0) 02/01/21 13:44 INR 1.1 (<1.2) 02/01/21 13:44 Abnormal lab findings: Abnormal Labs 02/01/21 02/01/21 02/01/21 13:44 13:44 13:44 WBC 27.1 H RBC Hgb Hct Neutrophils # 23.9 H Monocytes # 1.4 H VBG pH VBG pCO2 VBG HCO3 Sodium 132 L Potassium 6.6 H* Chloride 94 L Carbon Dioxide <5 L* BUN 170 H* Creatinine 14.39 H* Glucose 155 H Calcium Alkaline Phosphatase Total Protein Albumin Amylase 345 H* Lipase 1635 H Urine Protein 1+ H Urine Blood Moderate H Ur Leukocyte Esterase Trace H Urine WBC 9 H Urine Bacteria Rare H Hyaline Casts 35 H Urine Mucus Rare H 02/01/21 02/01/21 02/01/21 15:39 16:46 23:38 WBC 29.3 H RBC Hgb Hct Neutrophils # 25.2 H Monocytes # 2.2 H VBG pH 7.16 L* VBG pCO2 33 L VBG HCO3 11 L Sodium Potassium 6.2 H* Chloride Carbon Dioxide BUN Creatinine Glucose Calcium Alkaline Phosphatase Total Protein Albumin Amylase Lipase Urine Protein Urine Blood Ur Leukocyte Esterase Urine WBC Urine Bacteria Hyaline Casts Urine Mucus 02/01/21 02/02/21 02/02/21 23:38 03:59 03:59 WBC 22.8 H RBC 4.09 L Hgb 12.7 L Hct 37.1 L Neutrophils # 19.2 H Monocytes # 1.8 H VBG pH VBG pCO2 VBG HCO3 Sodium 130 L 133 L Potassium Chloride Carbon Dioxide 12 L 18 L BUN 128 H* Creatinine 8.84 H* 8.07 H* Glucose 133 H 128 H Calcium 7.7 L 7.3 L Alkaline Phosphatase 29 L 32 L Total Protein 5.3 L 5.0 L Albumin 2.9 L 2.7 L Amylase Lipase Urine Protein Urine Blood Ur Leukocyte Esterase Urine WBC Urine Bacteria Hyaline Casts Urine Mucus - Diagnostic Findings Chest x-ray: image reviewed (No acute process.) Additional studies: CT abdomen and pelvis showed no bowel obstruction, cannot exclude uncomplicated enterocolitis. Assessment and Plan Assessment: Impression: Acute kidney injury secondary to profound hypovolemia and hypotension, acute tubular necrosis. Patient's baseline creatinine is 1-1.2. Suspect acute pancreatitis with elevated amylase and lipase levels. Exact etiology of his pancreatitis is not clear at this point. Acute anion gap metabolic acidosis secondary to acute kidney injury Acute hyperkalemia secondary to metabolic acidosis and acute kidney injury not to mention the patient was on Aldactone prior to admission. Hypovolemic shock, doubt septic shock. Although the patient will need to be empirically covered with antibiotics, and check cultures. Continue IV fluids, and continue norepinephrine titrate accordingly for now. History of hypertension. Positive Hemoccult stools, possibly related to platelet dysfunction with underlying uremia. Patient did receive DDAVP. Hemoglobin is stable. Recommendation: Continue present supportive care measures. Hold blood pressure medications. Continue IV fluids and norepinephrine. Continue hemodialysis. Antibiotics empirically. And adjust or discontinue based on the final cultures. Continue to monitor electrolytes and renal profile on a daily basis. Repeat amylase and lipase. Continue to monitor hemoglobin and addressed accordingly. Prognosis remains relatively guarded, but over the last 24 hours, significant improvement has been noted. We will continue to follow closely in the ICU for the next 24 hours. Time with Patient: Greater than 30
--- NOTE | 2021-02-02 13:18 | CONS ---
CONSULTATION Mr. Crespo is a 60-year-old male with known history of prior hypertrophic cardiomyopathy, permanent pacemaker implantation, paroxysmal atrial fibrillation, who presented with symptoms of diarrhea going on for about a week, poor oral intake and progressive fatigue. He presented to the emergency room with progressive fatigue, was noted to have severe renal failure with hyperkalemia and acidosis. He underwent emergency dialysis yesterday. He is feeling better this morning. He denies any chest pain. His breathing has been stable. He denies any dizziness or palpitations. He denies any gross GI bleeding. Patient is usually average in his exercise tolerance, walks his dog, and has no associated issue. Since his admission, he has been in a paced rhythm. There is no evidence of ventricular ectopic activity. On presentation, his potassium was 6.6 with a BUN of 170 and creatinine of 14.3. Reviewing his prior testing, his creatinine in June of 2018 was 1.46. His coronary risk factors are remarkable for history of hypertension and hyperlipidemia. He is non-diabetic. He is a smoker and trying to quit. His medication as an outpatient included Norvasc, valsartan 320 mg daily, Aldactazide, Xarelto 20 mg daily, omeprazole, Toprol-XL 100 mg daily, fenofibrate, Lipitor 20 mg daily, and baclofen. He is on IV bicarb drip and low- dose norepinephrine that was started after dialysis. His past history is remarkable for the fact that he underwent cardiac catheterization in June of 2018, and at that time there was no evidence of obstructive disease. He had a transesophageal echocardiogram in 2015 that showed a normal left ventricular size and systolic function. He has undergone pacemaker implantation, as noted, and he has history of paroxysmal atrial fibrillation. REVIEW OF SYSTEMS: RESPIRATORY SYSTEM: He denies any recent wheezing or cough. Denies any history of obstructive lung disease. GI SYSTEM: He had the diarrhea but no bleeding. He denies any nausea or vomiting. SYSTEM: No dysuria or hematuria. NERVOUS SYSTEM: He denies any stroke or seizure. PHYSICAL EXAMINATION: He is a 60-year-old male, alert, oriented, in no apparent distress. Blood pressure 108/60 with a heart rate in the 80s on low-dose vasopressor. HEAD: Normocephalic. EYES: Sclerae anicteric. NECK: Good carotid upstroke. No bruit. LUNGS: Clear to auscultation. HEART: Regular rate and rhythm. S1, S2. No S3, with systolic murmur, early peaking. No diastolic murmur. No rub. ABDOMEN: Soft, nontender. Positive bowel sounds. No organomegaly. EXTREMITIES: No edema. Intact distal pulses. LAB DATA: His lab data today show his BUN and creatinine are 128 and 8.07. Potassium 4.1. His sodium is 133. White blood cells of 22.8, hemoglobin of 12.7. He is heme-positive. His EKG showed a sinus mechanism with ventricular pacing and nonspecific T-wave changes consistent with left ventricular hypertrophy. His chest x-ray shows no acute infiltrate. His abdominal and pelvis CT shows no evidence of bowel obstruction. IMPRESSION: 1. Acute diarrhea with dehydration and acute renal failure. 2. Emergency dialysis. 3. Severe electrolyte imbalance with acidosis related to his renal shutdown. 4. History of permanent pacemaker implantation and prior paroxysmal atrial fibrillation. Remains in sinus mechanism with normal functioning of his pacemaker. 5. Prior history of hypertrophic cardiomyopathy. On examination, no significant murmur to suggest significant obstructive cardiomyopathy. 6. History of hypertension. 7. History of hyperlipidemia. RECOMMENDATIONS: From the cardiac standpoint, at this time will continue to hold his antihypertensive regimen. Depending on his blood pressure and his rhythm, we can re-initiate the beta bob. I will hold his angiotensin receptor bob and diuretic at this time. I will obtain echocardiogram with Doppler to evaluate the left ventricular systolic function. His anticoagulation is on hold at this time because of the heme-positive stool. Depending on his progress, further recommendations will be made. Thank you for this consult. Will follow with you. MMODL / IJN: [id number] /
[2021-02-02] MEDS ORDERED: ONDANSETRON 4 MG/2 ML VIAL IVP PRN (13:30)
[2021-02-02] MEDS: ACETAMINOPHEN TAB 325 MG TAB PO PRN (18:14)
[2021-02-02 18:19] LABS: Glucose,Whole Blood 119 mg/dL (75-99)
[2021-02-02] MEDS: ATORVASTATIN 20 MG TAB PO SCH (20:11)
[2021-02-02] MEDS: PIPERACILLIN-TAZOBACTAM 3.375 GM in SODIUM CHLORIDE 0.9% 100 ML IVPB SCH (22:01)
--- NOTE | 2021-02-02 23:37 | P.CONS ---
History of Present Illness - Reason for Consult Consult date: 02/02/21 ID consult Requesting physician: Vince Plascencia - Chief Complaint abd pain x few days - History of Present Illness History of present illness : Patient is 60-year-old male presenting to the ER yesterday afternoon for evaluation of abdominal pain and generalized weakness in this patient symptom has been going on for a day or 2 before presentation to the hospital the patient has been nauseated but denies having any vomiting patient is complaining of diarrhea with multiple 75 loose stools for the last few days no blood or mucus in the stool with the symptom the patient was evaluated by the ER physician on arrival to the ER the patient was afebrile and no fever has been ordered subsequently patient was noticed to be hypotensive requiring fluid boluses and was admitted to ICU patient had did have a white count of 27,000 down to 20,000 today he also have significant elevated BUN and creatinine which is new for him kidney function has been normal amylase and lipase are elevated urine has been mildly positive stool for culture was negative leonard PCR was negative patient did have a abdominal pelvis CT no bowel obstruction cannot exclude mild uncomplicated enterocolitis patient has been admitted to the ICU with the patient has been started on Zosyn infectious he was consulted for further management of antibiotic therapy patient did have a dialysis catheter placement by vascular surgery Review of system: CONSTITUTIONAL: Positive for weakness kaleb denies high-grade fever. EYES: No complaint. ENT: No complaint. RESPIRATORY: No complaint. CARDIOVASCULAR: No complaint. GENITOURINARY: No complaint. GASTROINTESTINAL: As per history of present illness. MUSCULOSKELETAL: No complaint. INTEGUMENTARY: No complaint. PSYCHOLOGIC: No complaint. ENDOCRINE: No complaint. NEUROLOGIC: No complaint. Past medical history : Reviewed, documented below Past surgical history : Reviewed, documented below Social history: Reviewed, documented below Medications: Reviewed, as documented below EXAMINATION: Vital sigans= Reviewed and documented below GENERAL DESCRIPTION: Middle-aged male lying in bed, no distress. No tachypnea or accessory muscle of respiration use. HEENT: Shows Pallor , no scleral icterus. Oral mucous membrane is dry. NECK: Trachea central, no thyromegaly. LUNGS: Unlabored breathing. Decreased breath sound at bases. No wheeze or crackle. HEART: S1, S2, regular rate and rhythm. ABDOMEN: Soft, no tenderness , guarding or rigidity EXTREMITIES: No edema of feet. SKIN: No rash, no masses palpable. NEUROLOGICAL: The patient is awake, alert, oriented x3, mood and affect normal. LABS AND RADIOLOGY: Reviewed results see below Assessment : Patient presented to hospital with weakness some abdominal discomfort and diarrhea in this patient noticed to have elevated white count did have hypotension requiring pressor support abnormal CT with evidence of enterocolitis and significant elevated BUN and creatinine with concern for possible infectious versus noninfectious diarrhea underlying ischemia needs to be considered more than infectious etiology Plan: 1-we will obtain a stool cultures 2-Zosyn to continue 3-gentle IV fluid We will follow on clinical condition and cultures to further adjust medication if needed Thank you for this consultation we will follow the patient along with you Past Medical History Past Medical History: GERD/Reflux, Hyperlipidemia, Hypertension, Musculoskeletal Disorder, Osteoarthritis (OA) Additional Past Medical History / Comment(s): CHRONIC SINUS INFECTIONS. RAFAT,CARDIOVERSION/ABLATION; DEG. DISCS History of Any Multi-Drug Resistant Organisms: None Reported Past Surgical History: Ablation, Pacemaker Additional Past Surgical History / Comment(s): FIRST SURGERY Past Anesthesia/Blood Transfusion Reactions: No Reported Reaction Additional Past Anesthesia/Blood Transfusion Reaction / Comm: PATIENT HAS NEVER HAD ANESTHESIA. Type of Cardiac Device: Permanent Pacemaker Device Placement Date:: 2014 Past Psychological History: Anxiety Additional Psychological History / Comment(s): RECENTLY LOST HIS JOB. Smoking Status: Current some day smoker Past Alcohol Use History: Rare Additional Past Alcohol Use History / Comment(s): PT HAS SMOKED FOR 40 YEARS, 1 PPD AND OCC SMOKES MARIJUANA Past Drug Use History: Marijuana - Past Family History Father Additional Family Medical History / Comment(s): HEART TRANSPLANT. Sister(s) Additional Family Medical History / Comment(s): BRAIN ANEURYSM (SURGERY WAS SUCCESSFUL). Medications and Allergies Home Medications Medication Instructions Recorded Confirmed Type Loratadine 10 mg PO DAILY 07/22/14 02/01/21 History Multivitamins, Thera [Multivitamin 1 tab PO DAILY 07/22/14 02/01/21 History (formulary)] clonazePAM [Clonazepam] 2 mg PO HS 07/22/14 02/01/21 History amLODIPine [Norvasc] 10 mg PO DAILY 09/06/14 02/01/21 History Atorvastatin [Lipitor] 20 mg PO HS 11/03/14 02/01/21 History Metoprolol Succinate (ER) [Toprol 100 mg PO DAILY #30 tab.er.24h 11/08/14 02/01/21 Rx XL] Baclofen [Lioresal] 10 mg PO BID 06/19/18 02/01/21 History Fenofibrate Nanocrystallized 145 mg PO DAILY 06/19/18 02/01/21 History [Fenofibrate] HYDROcodone/APAP 10-325MG [[place] 1 tab PO BID 06/19/18 02/01/21 History 10-325] Rivaroxaban [Xarelto] 20 mg PO W/SUPPER 06/19/18 02/01/21 History Morphine Sulfate ER [Ms Contin] 15 mg PO DAILY 02/01/21 02/01/21 History Omeprazole 20 mg PO BID 02/01/21 02/01/21 History Spironolactone-Hctz 25-25Mg 1 tab PO DAILY 02/01/21 02/01/21 History [Aldactazide 25-25Mg] Valsartan 320 mg PO DAILY 02/01/21 02/01/21 History Allergies Allergy/AdvReac Type Severity Reaction Status Date / Time cephalexin monohydrate Allergy Rash/Hives Verified 02/01/21 15:22 [From Keflex] Physical Exam Vitals: Vital Signs Temp Pulse Pulse Resp BP BP Pulse Ox 02/02/21 10:00 84 16 100/48 02/02/21 09:45 81 7 L 86/66 94 L 02/02/21 09:30 85 12 95/57 02/02/21 09:15 90 14 127/77 02/02/21 09:00 92 10 L 112/71 96 02/02/21 08:45 92 6 L 93/63 02/02/21 08:30 89 11 L 111/59 95 02/02/21 08:15 84 15 118/46 95 02/02/21 08:00 98.2 F 86 12 112/63 95 02/02/21 07:45 79 28 H 88/45 96 02/02/21 07:30 85 24 108/64 93 L 02/02/21 07:00 84 19 108/60 93 L 02/02/21 06:45 92 15 95 02/02/21 06:30 80 23 95/59 96 02/02/21 06:15 79 16 85/58 92 L 02/02/21 06:00 75 19 113/60 93 L 02/02/21 05:45 77 18 117/72 93 L 02/02/21 05:30 75 19 94/54 93 L 02/02/21 05:15 78 13 129/63 94 L 02/02/21 05:00 86 11 L 129/63 95 02/02/21 04:45 75 11 L 112/58 94 L 02/02/21 04:30 79 13 106/54 93 L 02/02/21 04:15 82 20 126/89 96 02/02/21 04:00 98.2 F 72 9 L 103/54 96 02/02/21 03:45 80 12 122/65 95 02/02/21 03:30 77 15 112/46 93 L 02/02/21 03:15 78 14 121/91 93 L 02/02/21 03:00 76 13 114/59 95 02/02/21 02:45 72 14 104/55 95 02/02/21 02:30 76 10 L 110/56 96 02/02/21 02:15 79 13 117/54 94 L 02/02/21 02:00 76 20 94/47 96 02/02/21 01:45 76 16 82/64 94 L 02/02/21 01:30 81 22 125/66 96 02/02/21 01:15 78 11 L 125/66 95 02/02/21 01:00 76 19 120/62 95 02/02/21 00:45 76 20 104/57 95 02/02/21 00:30 78 13 96/49 94 L 02/02/21 00:20 72 12 96 02/02/21 00:16 78 15 101/64 95 02/02/21 00:00 98.5 F 76 15 122/79 95 02/01/21 23:45 77 15 96 02/01/21 23:30 82 32 H 118/65 96 02/01/21 23:15 92 24 121/62 96 02/01/21 23:00 69 14 118/60 96 02/01/21 22:45 73 15 95/51 94 L 02/01/21 22:30 71 13 101/54 97 02/01/21 22:15 73 13 93/49 97 02/01/21 22:09 98.1 F 80 18 105/86 02/01/21 22:00 73 13 108/68 96 02/01/21 21:45 73 12 86/68 96 02/01/21 21:30 74 17 105/86 97 02/01/21 21:15 87 18 107/76 95 02/01/21 21:00 73 14 107/52 95 02/01/21 20:45 81 22 75/62 97 02/01/21 20:30 79 17 94/73 95 02/01/21 20:15 80 15 89/57 95 02/01/21 20:00 98.8 F 85 15 93/66 95 02/01/21 19:45 85 13 103/52 96 02/01/21 19:30 80 14 82/41 95 02/01/21 19:15 91 12 85/49 95 02/01/21 19:00 78 11 L 99/61 02/01/21 18:45 86 11 L 99/61 96 02/01/21 18:30 92 99/61 95 02/01/21 18:09 98.2 F 89 15 99/61 96 02/01/21 17:37 80 18 109/62 98 02/01/21 17:28 75 02/01/21 17:22 76 02/01/21 15:43 97.4 F L 72 18 126/60 97 02/01/21 13:15 96.9 F L 67 18 132/86 96 Intake and Output 02/01/21 02/02/21 02/02/21 22:59 06:59 14:59 Intake Total 8034.683 5729.349 1880.115 Output Total 542 560 475 Balance 729.144 570.974 9424.115 Intake: IV 900 1200 675 Dextrose 5% in Water 1, 900 1200 300 000 ml @ 150 mls/hr IV . Q7H40M [facility] with Sodium Bicarb (1 Meq/ml) 150 ml Rx#:[id number] Sodium Chloride 0.9% 1, 375 000 ml @ 125 mls/hr IV . Q8H [facility] Rx#:[id number] Intake, IV Titration 71.144 298.950 9785.115 Amount Norepinephrine 4 mg In 71.144 160.349 205.115 Sodium Chloride 0.9% 250 ml @ 0.05 MCG/KG/MIN 16. 418 mls/hr IV .[id number] [facility] Rx#:[id number] Sodium Chloride 0.9% 1, 1000 000 ml @ 999 mls/hr IV . Q1H1M [facility] Rx#:[id number] Hemodialysis 300 Output: Urine 242 560 275 Stool 200 Hemodialysis 300 Other: Voiding Method Indwelling Catheter Indwelling Catheter Indwelling Catheter Weight 86.183 kg 86.7 kg Results CBC & Chem 7: 02/02/21 03:59 02/02/21 03:59 Labs: Abnormal Lab Results - Last 24 Hours (Table) 02/01/21 02/01/21 02/01/21 Range/Units 13:44 13:44 13:44 WBC 27.1 H (3.8-10.6) k/uL RBC (4.30-5.90) m/uL Hgb (13.0-17.5) gm/dL Hct (39.0-53.0) % Neutrophils # 23.9 H (1.3-7.7) k/uL Monocytes # 1.4 H (0-1.0) k/uL VBG pH (7.31-7.41) VBG pCO2 (37-51) mmHg VBG HCO3 (24-28) mmol/L Sodium 132 L (137-145) mmol/L Potassium 6.6 H* (3.5-5.1) mmol/L Chloride 94 L (98-107) mmol/L Carbon Dioxide <5 L* (22-30) mmol/L BUN 170 H* (9-20) mg/dL Creatinine 14.39 H* (0.66-1.25) mg/dL Glucose 155 H (74-99) mg/dL Calcium (8.4-10.2) mg/dL Alkaline Phosphatase (38-126) U/L Total Protein (6.3-8.2) g/dL Albumin (3.5-5.0) g/dL Amylase 345 H* (30-110) U/L Lipase 1635 H (23-300) U/L Urine Protein 1+ H (Negative) Urine Blood Moderate H (Negative) Ur Leukocyte Esterase Trace H (Negative) Urine WBC 9 H (0-5) /hpf Urine Bacteria Rare H (None) /hpf Hyaline Casts 35 H (0-2) /lpf Urine Mucus Rare H (None) /hpf 02/01/21 02/01/21 02/01/21 Range/Units 15:39 16:46 23:38 WBC 29.3 H (3.8-10.6) k/uL RBC (4.30-5.90) m/uL Hgb (13.0-17.5) gm/dL Hct (39.0-53.0) % Neutrophils # 25.2 H (1.3-7.7) k/uL Monocytes # 2.2 H (0-1.0) k/uL VBG pH 7.16 L* (7.31-7.41) VBG pCO2 33 L (37-51) mmHg VBG HCO3 11 L (24-28) mmol/L Sodium (137-145) mmol/L Potassium 6.2 H* (3.5-5.1) mmol/L Chloride (98-107) mmol/L Carbon Dioxide (22-30) mmol/L BUN (9-20) mg/dL Creatinine (0.66-1.25) mg/dL Glucose (74-99) mg/dL Calcium (8.4-10.2) mg/dL Alkaline Phosphatase (38-126) U/L Total Protein (6.3-8.2) g/dL Albumin (3.5-5.0) g/dL Amylase (30-110) U/L Lipase (23-300) U/L Urine Protein (Negative) Urine Blood (Negative) Ur Leukocyte Esterase (Negative) Urine WBC (0-5) /hpf Urine Bacteria (None) /hpf Hyaline Casts (0-2) /lpf Urine Mucus (None) /hpf 02/01/21 02/02/21 02/02/21 Range/Units 23:38 03:59 03:59 WBC 22.8 H (3.8-10.6) k/uL RBC 4.09 L (4.30-5.90) m/uL Hgb 12.7 L (13.0-17.5) gm/dL Hct 37.1 L (39.0-53.0) % Neutrophils # 19.2 H (1.3-7.7) k/uL Monocytes # 1.8 H (0-1.0) k/uL VBG pH (7.31-7.41) VBG pCO2 (37-51) mmHg VBG HCO3 (24-28) mmol/L Sodium 130 L 133 L (137-145) mmol/L Potassium (3.5-5.1) mmol/L Chloride (98-107) mmol/L Carbon Dioxide 12 L 18 L (22-30) mmol/L BUN 128 H* (9-20) mg/dL Creatinine 8.84 H* 8.07 H* (0.66-1.25) mg/dL Glucose 133 H 128 H (74-99) mg/dL Calcium 7.7 L 7.3 L (8.4-10.2) mg/dL Alkaline Phosphatase 29 L 32 L (38-126) U/L Total Protein 5.3 L 5.0 L (6.3-8.2) g/dL Albumin 2.9 L 2.7 L (3.5-5.0) g/dL Amylase (30-110) U/L Lipase (23-300) U/L Urine Protein (Negative) Urine Blood (Negative) Ur Leukocyte Esterase (Negative) Urine WBC (0-5) /hpf Urine Bacteria (None) /hpf Hyaline Casts (0-2) /lpf Urine Mucus (None) /hpf
[2021-02-03] MEDS: NOREPINEPHRINE 4 MG in SODIUM CHLORIDE 0.9% 250 ML IV SCH (02:38)
[2021-02-03] MEDS: SODIUM CHLORIDE 0.9% 1,000 ML IV SCH ×3 (02:49→20:46)
[2021-02-03 05:36] LABS: Basophils % (A) 0 %; Eosinophils % (A) 0 %; HCT 27.5 % (39.0-53.0); Lymphocytes # (A) 1.9 k/uL (1.0-4.8); Lymphocytes % (A) 15 %; MCH 32.7 pg (25.0-35.0); MCHC 35.6 g/dL (31.0-37.0); MCV 91.9 fL (80.0-100.0); Mean Platelet Volume 9.1; Monocytes # (A) 1.4 k/uL (0-1.0); Monocytes % (A) 11 %; Neutrophils # (A) 9.2 k/uL (1.3-7.7); Neutrophils % (A) 72 %; Platelet Count 246 k/uL (150-450); RDW 13.8 % (11.5-15.5); WBC 12.7 k/uL (3.8-10.6)
[2021-02-03 05:39] LABS: HGB 9.8 gm/dL (13.0-17.5)
[2021-02-03 05:58] LABS: Albumin 2.4 g/dL (3.5-5.0); C Reactive Protein 6.6 mg/dL (<1.0); Total Bilirubin 0.2 mg/dL (0.2-1.3); Total Protein 4.4 g/dL (6.3-8.2)
[2021-02-03 06:01] LABS: Glucose,Whole Blood 114 mg/dL (75-99)
--- NOTE | 2021-02-03 07:44 | P.PN ---
Subjective Progress Note Date: 02/03/21 Principal diagnosis: Follow-up for acute kidney injury secondary to ATN from hypovolemia and hypotension, patient has had abdominal discomfort and diarrhea. He was started on IV fluids and was also started on dialysis yesterday and His vital signs are stable, he need 13 55 mL of urine, his creatinine is 4 this morning with potassium 4 His abdominal pain is much better which is located in the lower abdomen. No nausea vomiting he was able to eat his breakfast fair amount. Condition of her's. And has a chronic pacemaker has paced rhythm Patient presented to the hospital with generalized weakness as well as poor oral intake for about one week now. He was also complaining of abdominal discomfort which now seems to have improved. He denies vomiting but was having diarrhea prior to admission. Patient's creatinine on admission was 14.39. His baseline creatinine appears to be 1-1.2. Potassium level was elevated at 6.6. He was also profoundly acidotic with a bicarb level of less than 5. He was taking valsartan as well as spironolactone outpatient. No history of diabetes. Denies chest pain or shortness of breath. Patient underwent emergent hemodialysis last night. Urine output has not improved. He is maintained on bicarb drip. Acidosis is improved. No fever or chills. Currently on low-dose Levophed. Objective - Vital Signs Vital signs: Vital Signs Temp 98.4 F 02/03/21 04:00 Pulse 82 02/03/21 07:00 Resp 16 02/03/21 07:00 BP 123/69 02/03/21 07:00 Pulse Ox 99 02/03/21 07:00 Intake & Output 02/02/21 02/03/21 02/03/21 18:59 06:59 18:59 Intake Total 2880.115 1850 605 Output Total 1455 700 60 Balance 5590.638 6659 545 Weight 85.2 kg Intake: IV 1675 1500 125 Dextrose 5% in Water 1, 300 000 ml @ 150 mls/hr IV . Q7H40M [facility] with Sodium Bicarb (1 Meq/ml) 150 ml Rx#:[id number] Sodium Chloride 0.9% 1, 1375 1500 125 000 ml @ 125 mls/hr IV . Q8H [facility] Rx#:[id number] Intake, IV Titration 1205.115 Amount Norepinephrine 4 mg In 205.115 Sodium Chloride 0.9% 250 ml @ 0.05 MCG/KG/MIN 16. 418 mls/hr IV .[id number] [facility] Rx#:[id number] Sodium Chloride 0.9% 1, 1000 000 ml @ 999 mls/hr IV . Q1H1M ONE Rx#:[id number] Oral 350 480 Output: Urine 655 700 60 Stool 800 Other: Voiding Method Indwelling Catheter Indwelling Catheter # Bowel Movements 1 1 Exam awake alert oriented Neck is supple no facial asymmetry Lungs are clear to auscultation good air entry bilaterally Heart sounds unremarkable for any murmur rub gallop on the monitor is showing paced rhythm with irregular beats Abdomen soft nontender Extremity exam reveals no edema Neurologically awake and alert and oriented no asterixis - Labs CBC & Chem 7: 02/03/21 04:52 02/03/21 04:52 Labs: Abnormal Lab Results - Last 24 Hours (Table) 02/02/21 02/02/21 02/03/21 Range/Units 12:20 18:17 04:52 WBC 12.7 H (3.8-10.6) k/uL RBC 3.00 L (4.30-5.90) m/uL Hgb 9.8 L D (13.0-17.5) gm/dL Hct 27.5 L (39.0-53.0) % Neutrophils # 9.2 H (1.3-7.7) k/uL Monocytes # 1.4 H (0-1.0) k/uL Sodium (137-145) mmol/L Chloride (98-107) mmol/L BUN (9-20) mg/dL Creatinine (0.66-1.25) mg/dL Glucose (74-99) mg/dL POC Glucose (mg/dL) 105 H 119 H (75-99) mg/dL Calcium (8.4-10.2) mg/dL Alkaline Phosphatase (38-126) U/L C-Reactive Protein (<1.0) mg/dL Total Protein (6.3-8.2) g/dL Albumin (3.5-5.0) g/dL 02/03/21 02/03/21 Range/Units 04:52 06:00 WBC (3.8-10.6) k/uL RBC (4.30-5.90) m/uL Hgb (13.0-17.5) gm/dL Hct (39.0-53.0) % Neutrophils # (1.3-7.7) k/uL Monocytes # (0-1.0) k/uL Sodium 136 L (137-145) mmol/L Chloride 108 H (98-107) mmol/L BUN 76 H (9-20) mg/dL Creatinine 4.08 H (0.66-1.25) mg/dL Glucose 105 H (74-99) mg/dL POC Glucose (mg/dL) 114 H (75-99) mg/dL Calcium 7.0 L (8.4-10.2) mg/dL Alkaline Phosphatase 26 L (38-126) U/L C-Reactive Protein 6.6 H (<1.0) mg/dL Total Protein 4.4 L (6.3-8.2) g/dL Albumin 2.4 L (3.5-5.0) g/dL Microbiology - Last 24 Hours (Table) 02/02/21 03:59 Blood Culture - Preliminary Blood No Growth after 24 hours 02/02/21 16:24 Stool Culture - Preliminary Stool Assessment and Plan Assessment: Impression 1. Acute kidney injury from volume depletion, with an medications that included valsartan, Aldactone. improved with IV fluids, status post 1 dialysis yesterday because of hyperkalemia and hiccups. 2. Chronic kidney disease, stage III, etiology unclear at this time creatinine 1.46 as of 06/22/2018. 3. Anemia and again went down from 17.4-9.8 over the last 2 days no obvious external bleeding. 4. Abdominal pain computed tomography scan was remarkable first distention of the stomach and some possible thickening of large bowel loops 5. Normal kidneys on ultrasound with a few cysts recommendation 1. Continue IV fluids 2. We'll hold off dialysis and watch him 3. Continue IV fluids normal saline at 125 and hour 4. Labs to be checked daily
[2021-02-03] MEDS: PANTOPRAZOLE 40 MG/10 ML VIAL IVP SCH ×2 (08:10→20:41)
[2021-02-03] MEDS: PIPERACILLIN-TAZOBACTAM 3.375 GM in SODIUM CHLORIDE 0.9% 100 ML IVPB SCH (08:10)
[2021-02-03] MEDS: MULTIVITAMINS, THERA 1 EACH TAB PO SCH (08:10)
[2021-02-03] MEDS ORDERED: FENOFIBRATE 160 MG TAB PO SCH (09:00)
--- NOTE | 2021-02-03 11:32 | P.PN ---
Subjective Patient was a 60-year-old male came in with complaints of severe crampy lower abdominal pain which started yesterday patient abdominal pain preceded by flulike symptoms without any fever and diarrhea. Patient does have history of atrial fibrillation and is on anticoagulation with xarelto. In ER patient is found to have acute renal failure with creatinine going up to 8.84 and be ongoing up to 170 and patient was having multiple episodes of nausea vomiting. Patient was subsequently admitted patient received emergent dialysis catheter placement underwent dialysis yesterday after which his creatinine did improve to 8.07 and BNP 128. Patient was hypotensive. Patient is on multiple medications that can affect the kidney including the valsartan, spironolactone. Patient is also hypotensive leading to possibly acute tubular necrosis. Patient is presently on bicarbonate drip and pressor support with norepinephrine for severe metabolic acidosis from uremia and hypotension and shock respectively. Patient doesn't have any other evidence of infection except for viral gastroenteritis patient had a CT of the abdomen which is consistent with mild enterocolitis and gastroenteritis. Patient although started empirically on Zosyn by manager pricing. Patient does have leukocytosis of 22,000. Infectious disease was consulted from ER as well. Patient was noted to have dark stools and blood in the stools today morning secondary to being on anticoagulation and uremic bleed causing platelet dysfunction because of which patient is being given desmopressin. Patient basically had viral gastroenteritis which led to hypokalemia and a every 2 blood necrosis secondary to hypotension and patient is also on diuretics and DOROTEO inhibitor which led to acute renal failure from acute blood necrosis. Patient is on anticoagulation along with platelet dysfunction from uremia leading to GI bleed. 02/03/2021 patient's GI bleed improved but patient was having some greenish stools. Patient's urinalysis is being held white blood cell count did improve. Patient probably can be transferred out of ICU. Patient although still feels fatigued serum sodium improved Constitutional: Fatigue as mentioned above Cardio vascular: denied any chest pain, palpitations Gastrointestinal denied any nausea vomiting Pulmonary: Denied any shortness of breath cough Neurologic denied any new focal deficits All inpatient medications were reviewed and appropriate changes in these medications as dictated in the interval history and assessment and plan. PHYSICAL EXAMINATION: GENERAL: The patient is alert and oriented x3, not in any acute distress. Well developed, well nourished. HEENT: Pupils are round and equally reacting to light. EOMI. No scleral icterus. No conjunctival pallor. Normocephalic, atraumatic. No pharyngeal erythema. No thyromegaly. CARDIOVASCULAR: S1 and S2 present. No murmurs, rubs, or gallops. PULMONARY: Chest is clear to auscultation, no wheezing or crackles. ABDOMEN: Soft, mild tenderness in the right lower quadrant, nondistended, normoactive bowel sounds. No palpable organomegaly. MUSCULOSKELETAL: No joint swelling or deformity. EXTREMITIES: No cyanosis, clubbing, or pedal edema. NEUROLOGICAL: Gross neurological examination did not reveal any focal deficits. SKIN: No rashes. Assessment and plan -Acute renal failure secondary to acute blood necrosisfrom hypotension and diuretics along with DOROTEO inhibitor. patient underwent urinalysis yesterday -Hypovolemic shock: hypovolemic shock, no evidence of sepsis at this time -Leukocytosis r -Severe anion gap metabolic acidosis secondary to uremia -Hypovolemic hyponatremia: Improved -Hyperkalemia secondary to acute renal failure and acute tubular necrosis -Atrial fibrillation on anticoagulationas mentioned above which will be held patient is presently atrial fibrillation but rate controlled. Patient's metoprolol is being held as well along with the other antidepressant medications -Hypertension: -Acute GI bleed secondary to platelet dysfunction from uremia along with anticoagulation patient will be continued on Protonix twice a day as patient had upper GI bleed with dark stools and some blood in the stools. Patient received desmopressin -Hyperlipidemia DVT prophylaxis: No pharmacological DVT prophylaxis because of GI bleed at this time Objective - Vital Signs Vital signs: Vital Signs Temp 98 F 02/03/21 08:00 Pulse 73 02/03/21 10:00 Resp 12 02/03/21 10:00 BP 146/66 02/03/21 10:00 Pulse Ox 95 02/03/21 10:00 Intake & Output 02/02/21 02/03/21 02/03/21 18:59 06:59 18:59 Intake Total 2880.115 1850 780 Output Total 1455 700 185 Balance 5619.707 0310 595 Weight 85.2 kg Intake: IV 1675 1500 300 Dextrose 5% in Water 1, 300 000 ml @ 150 mls/hr IV . Q7H40M [facility] with Sodium Bicarb (1 Meq/ml) 150 ml Rx#:[id number] Piperacillin-Tazobactam 3 50 .375 gm In Sodium Chloride 0.9% 100 ml @ 25 mls/hr IVPB Q12HR [facility] Rx #:[id number] Sodium Chloride 0.9% 1, 1375 1500 250 000 ml @ 125 mls/hr IV . Q8H [facility] Rx#:[id number] Intake, IV Titration 1205.115 Amount Norepinephrine 4 mg In 205.115 Sodium Chloride 0.9% 250 ml @ 0.05 MCG/KG/MIN 16. 418 mls/hr IV .[id number] [facility] Rx#:[id number] Sodium Chloride 0.9% 1, 1000 000 ml @ 999 mls/hr IV . Q1H1M [facility] Rx#:[id number] Oral 350 480 Output: Urine 655 700 185 Stool 800 Other: Voiding Method Indwelling Catheter Indwelling Catheter Indwelling Catheter # Bowel Movements 1 1 - Labs CBC & Chem 7: 02/03/21 04:52 02/03/21 04:52 Labs: Abnormal Lab Results - Last 24 Hours (Table) 02/02/21 02/02/21 02/03/21 Range/Units 12:20 18:17 04:52 WBC 12.7 H (3.8-10.6) k/uL RBC 3.00 L (4.30-5.90) m/uL Hgb 9.8 L D (13.0-17.5) gm/dL Hct 27.5 L (39.0-53.0) % Neutrophils # 9.2 H (1.3-7.7) k/uL Monocytes # 1.4 H (0-1.0) k/uL Sodium (137-145) mmol/L Chloride (98-107) mmol/L BUN (9-20) mg/dL Creatinine (0.66-1.25) mg/dL Glucose (74-99) mg/dL POC Glucose (mg/dL) 105 H 119 H (75-99) mg/dL Calcium (8.4-10.2) mg/dL Alkaline Phosphatase (38-126) U/L C-Reactive Protein (<1.0) mg/dL Total Protein (6.3-8.2) g/dL Albumin (3.5-5.0) g/dL 02/03/21 02/03/21 Range/Units 04:52 06:00 WBC (3.8-10.6) k/uL RBC (4.30-5.90) m/uL Hgb (13.0-17.5) gm/dL Hct (39.0-53.0) % Neutrophils # (1.3-7.7) k/uL Monocytes # (0-1.0) k/uL Sodium 136 L (137-145) mmol/L Chloride 108 H (98-107) mmol/L BUN 76 H (9-20) mg/dL Creatinine 4.08 H (0.66-1.25) mg/dL Glucose 105 H (74-99) mg/dL POC Glucose (mg/dL) 114 H (75-99) mg/dL Calcium 7.0 L (8.4-10.2) mg/dL Alkaline Phosphatase 26 L (38-126) U/L C-Reactive Protein 6.6 H (<1.0) mg/dL Total Protein 4.4 L (6.3-8.2) g/dL Albumin 2.4 L (3.5-5.0) g/dL Microbiology - Last 24 Hours (Table) 02/02/21 03:59 Blood Culture - Preliminary Blood No Growth after 24 hours 02/02/21 16:24 Stool Culture - Preliminary Stool
--- NOTE | 2021-02-03 11:47 | PN ---
PROGRESS NOTE Mr. Crespo is a 60-year-old male presented with progressive weakness and diarrhea, was noted to have significant renal failure with hyperkalemia and acidosis. He has a known history of hypertrophic cardiomyopathy, paroxysmal atrial fibrillation and permanent pacemaker implantation. He is feeling better today. His breathing is better. He is denying any chest pain. He denies any dizziness. He continues to be in sinus mechanism with normal function of his permanent pacemaker. He had an echocardiogram performed yesterday that revealed a preserved left ventricular size and systolic function. There is no documentation of significant outflow gradient. He has not been dialyzed today. His urine output has improved. He continues to be at this time on Lipitor 20 mg daily in addition to antibiotics. PHYSICAL EXAMINATION: Blood pressure in the 120s with a heart rate in the 80s. LUNGS: Clear. HEART: Regular rate and rhythm. S1, S2. No S3, with systolic murmur at the base. No diastolic murmur. No rub. ABDOMEN: Soft, nontender. Positive bowel sounds. No organomegaly. EXTREMITIES: No edema. LAB DATA: Hemoglobin 9.8, white blood cell 12.7, BUN and creatinine of 76 and , potassium 4.0. IMPRESSION: 1. Acute renal injury, improved. Patient has received dialysis. He is putting out urine at this point. 2. Electrolyte imbalance with acidosis, improving. 3. History of permanent pacemaker implantation with prior paroxysmal atrial fibrillation. Patient is not anticoagulated at this time because of GI bleeding; stable at this point. 4. History of hypertension. 5. Hyperlipidemia. RECOMMENDATIONS: From the cardiac standpoint, will continue supportive care. Will continue to follow his renal function, increase his level of activity. If he remains stable, he may be able to be transferred to the telemetry floor. Will continue to follow his hemoglobin to make a decision about reinitiating anticoagulation. In the meantime, will continue the present regimen. I will stop his fenofibrate because of the increased risk of causing abnormalities with the combination of an DOROTEO inhibitor and a fibrate in the setting of renal function abnormalities. MMODL / IJN: [id number] /
--- NOTE | 2021-02-03 14:25 | P.PN ---
Subjective Progress Note Date: 02/03/21 Principal diagnosis: Acute kidney injury This is a 60-year-old white male with history of cardiac arrhythmia/atrial fibrillation, and history of pacemaker implantation, maintained on anticoagulation therapy/Xarelto. Patient came in yesterday to the ER with a few days' history of severe crampy lower abdominal pain. Patient also had some flulike symptoms with mostly generalized weakness. Patient had intermittent episodes of diarrhea, intermittent episodes of nausea and vomiting, and he was not eating much. Denies any history of alcohol abuse. Patient is not a drinker. Patient was urged by his family members to go to the ER since his symptoms have lasted for over 3 days. And he was not getting any better. When the patient arrived to the ER yesterday, patient was noted to have leukocytosis with WBC count of 29.3, he was metabolically acidotic with bicarb of 12 and anion gap of 16. BUN was elevated, and creatinine of 14.39. Serum amylase was 345 and serum lipase was 1635. Patient had negative PCR for COVID-19 infection. Liver enzymes were relatively normal. Potassium on admission was 6.6, hence the patient had emergent hemodialysis done by nephrology, and patient was admitted to the ICU. Required more fluids for hypotension. Required low-dose norepinephrine for hypotension and he is presently on 0.05 mcg/kg/m, his IV fluid is presently at 1 25 mL/h, and his sodium bicarb was discontinued earlier this morning. denies any history of kidney disease, he does smoke but does not drink any alcohol. Cultures are pending. Patient is empirically on antibiotics in the form of Zosyn presently. Reevaluated today on 02/03/21, patient remains in the ICU, patient seems to be recovering from acute kidney injury/acute tubular necrosis from hypovolemia and hypotension. Patient received significant amount of fluids yesterday, and he also received dialysis yesterday. Today the patient seems to be doing better, and his labs are gradually improving. His creatinine is down to 4.08, and his admission creatinine was over 14. Potassium is down to 4. Bicarb is up to 22. His BUN is down to 76. Patient is obviously making a dramatic improvement and recovery compared to how he presented patient is on room air, denies any cough no wheezing no shortness of breath. Objective - Vital Signs Vital signs: Vital Signs Temp 98 F 02/03/21 08:00 Pulse 73 02/03/21 10:00 Resp 12 02/03/21 10:00 BP 146/66 02/03/21 10:00 Pulse Ox 95 02/03/21 10:00 Intake & Output 02/02/21 02/03/21 02/03/21 18:59 06:59 18:59 Intake Total 2880.115 1850 780 Output Total 1455 700 185 Balance 5927.659 5606 595 Weight 85.2 kg Intake: IV 1675 1500 300 Dextrose 5% in Water 1, 300 000 ml @ 150 mls/hr IV . Q7H40M INGRID with Sodium Bicarb (1 Meq/ml) 150 ml Rx#:[id number] Piperacillin-Tazobactam 3 50 .375 gm In Sodium Chloride 0.9% 100 ml @ 25 mls/hr IVPB Q12HR IGNRID Rx #:[id number] Sodium Chloride 0.9% 1, 1375 1500 250 000 ml @ 125 mls/hr IV . Q8H INGRID Rx#:[id number] Intake, IV Titration 1205.115 Amount Norepinephrine 4 mg In 205.115 Sodium Chloride 0.9% 250 ml @ 0.05 MCG/KG/MIN 16. 418 mls/hr IV .[id number] INGRID Rx#:[id number] Sodium Chloride 0.9% 1, 1000 000 ml @ 999 mls/hr IV . Q1H1M ONE Rx#:[id number] Oral 350 480 Output: Urine 655 700 185 Stool 800 Other: Voiding Method Indwelling Catheter Indwelling Catheter Indwelling Catheter # Bowel Movements 1 1 - Exam Physical Exam: Revealed a 60-year-old white male, pleasant, in no distress, on room air. Head: Atraumatic, normocephalic. HEENT:[Neck is supple.] [No neck masses.] [No thyromegaly.] [No JVD.] Chest: [Clear throughout, no crackles, no rhonchi, no wheezes.] Cardiac Exam: [Normal S1 and S2, no S3 gallop, no murmur.] Abdomen: [Soft, nontender, no megaly, no rebound, no guarding, normal bowel sounds.] Extremities: [No clubbing, no edema, no cyanosis.] Neurological Exam: [No focal neurologic deficit.] Alert oriented 3. Skin: No rashes. Psychiatric: Normal mood affect and normal mental status examination. - Labs CBC & Chem 7: 02/03/21 04:52 02/03/21 04:52 Labs: Abnormal Lab Results - Last 24 Hours (Table) 02/02/21 02/03/21 02/03/21 Range/Units 18:17 04:52 04:52 WBC 12.7 H (3.8-10.6) k/uL RBC 3.00 L (4.30-5.90) m/uL Hgb 9.8 L D (13.0-17.5) gm/dL Hct 27.5 L (39.0-53.0) % Neutrophils # 9.2 H (1.3-7.7) k/uL Monocytes # 1.4 H (0-1.0) k/uL Sodium 136 L (137-145) mmol/L Chloride 108 H (98-107) mmol/L BUN 76 H (9-20) mg/dL Creatinine 4.08 H (0.66-1.25) mg/dL Glucose 105 H (74-99) mg/dL POC Glucose (mg/dL) 119 H (75-99) mg/dL Calcium 7.0 L (8.4-10.2) mg/dL Alkaline Phosphatase 26 L (38-126) U/L C-Reactive Protein 6.6 H (<1.0) mg/dL Total Protein 4.4 L (6.3-8.2) g/dL Albumin 2.4 L (3.5-5.0) g/dL 02/03/21 Range/Units 06:00 WBC (3.8-10.6) k/uL RBC (4.30-5.90) m/uL Hgb (13.0-17.5) gm/dL Hct (39.0-53.0) % Neutrophils # (1.3-7.7) k/uL Monocytes # (0-1.0) k/uL Sodium (137-145) mmol/L Chloride (98-107) mmol/L BUN (9-20) mg/dL Creatinine (0.66-1.25) mg/dL Glucose (74-99) mg/dL POC Glucose (mg/dL) 114 H (75-99) mg/dL Calcium (8.4-10.2) mg/dL Alkaline Phosphatase (38-126) U/L C-Reactive Protein (<1.0) mg/dL Total Protein (6.3-8.2) g/dL Albumin (3.5-5.0) g/dL Microbiology - Last 24 Hours (Table) 02/02/21 03:59 Blood Culture - Preliminary Blood No Growth after 24 hours 02/02/21 16:24 Stool Culture - Preliminary Stool Assessment and Plan Assessment: Impression: Acute kidney injury secondary to profound hypovolemia and hypotension, acute tubular necrosis. Patient's baseline creatinine is 1-1.2. Suspect acute pancreatitis with elevated amylase and lipase levels. Exact etiology of his pancreatitis is not clear at this point. Acute anion gap metabolic acidosis secondary to acute kidney injury Acute hyperkalemia secondary to metabolic acidosis and acute kidney injury not to mention the patient was on Aldactone prior to admission. Hypovolemic shock, doubt septic shock. Although the patient will need to be empirically covered with antibiotics, and check cultures. Continue IV fluids, and continue norepinephrine titrate accordingly for now. History of hypertension. Positive Hemoccult stools, possibly related to platelet dysfunction with underlying uremia. Patient did receive DDAVP. Hemoglobin is stable. Recommendation: Continue present supportive care measures. Transfer out of the ICU to a regular medical floor. Antibiotics empirically. Blood cultures remain negative so far. Continue to monitor electrolytes and renal profile on a daily basis. Repeat amylase and lipase. Will transfer out of the ICU to a regular medical floor hopefully today. We will continue to follow Time with Patient: Less than 30
--- NOTE | 2021-02-03 19:17 | PN ---
PROGRESS NOTE DATE OF SERVICE: 02/03/2021 REASON FOR FOLLOWUP: Leukocytosis and gastroenteritis. INTERVAL HISTORY: The patient is afebrile. The patient will be transferred out of the ICU. The patient is currently breathing comfortably. No chest pain, shortness of breath or cough. Abdominal pain has improved. Diarrhea has slowed down. PHYSICAL EXAMINATION: Blood pressure 146/66, pulse of 73, temperature 97.4. He is 97% on room air. General description is a middle-aged male lying in bed in no distress. Respiratory system: Unlabored breathing, clear to auscultation anteriorly. Heart S1, S2. Regular rate and rhythm. Abdomen soft. No distention. No guarding or rigidity. Extremities: No edema of the feet. LABS: Hemoglobin is 9.1, white count 10.7, BUN of 76, creatinine 4.08. DIAGNOSTIC IMPRESSION AND PLAN: 1. Patient with elevated white count, multifactorial possible hemoconcentration and this patient's white count trending down. 2. Diarrhea with evidence of enteritis, possible viral. Antibiotic has been discontinued. Will monitor the patient closely off antibiotic therapy and continue supportive care. MMODL / IJN: [id number] /
[2021-02-03] MEDS: ATORVASTATIN 20 MG TAB PO SCH (20:41)
[2021-02-04] MEDS: SODIUM CHLORIDE 0.9% 1,000 ML IV SCH ×2 (03:15→04:08)
[2021-02-04 06:19] LABS: Basophils % (A) 0 %; Eosinophils # (A) 0.1 k/uL (0-0.7); Eosinophils % (A) 1 %; HCT 28.3 % (39.0-53.0); HGB 9.7 gm/dL (13.0-17.5); Lymphocytes # (A) 1.9 k/uL (1.0-4.8); Lymphocytes % (A) 17 %; MCH 32.5 pg (25.0-35.0); MCHC 34.2 g/dL (31.0-37.0); MCV 94.9 fL (80.0-100.0); Mean Platelet Volume 8.9; Monocytes % (A) 9 %; Neutrophils # (A) 8.1 k/uL (1.3-7.7); Neutrophils % (A) 72 %; Platelet Count 238 k/uL (150-450); RBC 2.99 m/uL (4.30-5.90); RDW 13.9 % (11.5-15.5); WBC 11.3 k/uL (3.8-10.6)
[2021-02-04] MEDS: PANTOPRAZOLE 40 MG/10 ML VIAL IVP SCH (07:00)
[2021-02-04] MEDS: ACETAMINOPHEN TAB 325 MG TAB PO PRN (07:01)
[2021-02-04] MEDS: MULTIVITAMINS, THERA 1 EACH TAB PO SCH (07:01)
[2021-02-04 10:03] LABS: African American GFR (CKD) 40.8 (60.0-200.0); Anion Gap 9.8 mmol/L (4.00-12.00); BUN/Creat Ratio 26.25 Ratio (12.00-20.00); Blood Urea Nitrogen 52.5 mg/dL (9.0-27.0); Calcium 7.3 mg/dL (8.7-10.3); Carbon Dioxide 21.2 mmol/L (21.6-31.8); Non-African American GFR(CKD) 35.2 (60.0-200.0); Potassium 4.2 mmol/L (3.5-5.5)
--- NOTE | 2021-02-04 10:29 | P.PN ---
Subjective Progress Note Date: 02/04/21 Principal diagnosis: Follow-up for acute kidney injury secondary to ATN from hypovolemia and hypotension, patient has had abdominal discomfort and diarrhea. He was started on IV fluids creatinine has improved. His symptoms are much better still has may be a little bit of loose stools but infrequent His vital signs are stable, able to walk around. He has a chronic pacemaker has paced rhythm Patient presented to the hospital with generalized weakness as well as poor oral intake for about one week now. He was also complaining of abdominal discomfort which now seems to have improved. He denies vomiting but was having diarrhea prior to admission. Patient's creatinine on admission was 14.39. His baseline creatinine appears to be 1-1.2. Potassium level was elevated at 6.6. He was also profoundly acidotic with a bicarb level of less than 5. He was taking valsartan as well as spironolactone outpatient. No history of diabetes. Denies chest pain or shortness of breath. Patient underwent emergent hemodialysis last night. Urine output has not improved. He is maintained on bicarb drip. Acidosis is improved. No fever or chills. Currently on low-dose Levophed. Objective - Vital Signs Vital signs: Vital Signs Temp 98.1 F 02/04/21 04:46 Pulse 71 02/04/21 08:00 Resp 18 02/04/21 04:46 BP 151/57 02/04/21 04:46 Pulse Ox 98 02/04/21 04:46 Intake & Output 02/03/21 02/04/21 02/04/21 18:59 06:59 18:59 Intake Total 780 1500 Output Total 185 Balance 595 1500 Intake: IV 300 1500 Piperacillin-Tazobactam 3 50 .375 gm In Sodium Chloride 0.9% 100 ml @ 25 mls/hr IVPB Q12HR INGRID Rx #:[id number] Sodium Chloride 0.9% 1, 250 1500 000 ml @ 125 mls/hr IV . Q8H INGRID Rx#:[id number] Oral 480 Output: Urine 185 Other: Voiding Method Indwelling Catheter Toilet Urinal # Bowel Movements 1 Balance and awake alert oriented comfortable A chin exam no JVP neck is supple no facial asymmetry Lungs clear to auscultation good air entry bilaterally Heart sounds unremarkable for any murmur rub gallop Abdomen soft nontender nondistended Extremity exam was no edema Neurologically awake alert oriented - Labs CBC & Chem 7: 02/04/21 05:44 02/04/21 05:44 Labs: Abnormal Lab Results - Last 24 Hours (Table) 02/04/21 02/04/21 Range/Units 05:44 05:44 WBC 11.3 H (3.8-10.6) k/uL RBC 2.99 L (4.30-5.90) m/uL Hgb 9.7 L (13.0-17.5) gm/dL Hct 28.3 L (39.0-53.0) % Neutrophils # 8.1 H (1.3-7.7) k/uL Chloride 110 H (96-109) mmol/L Carbon Dioxide 21.2 L (21.6-31.8) mmol/L BUN 52.5 H (9.0-27.0) mg/dL Creatinine 2.0 H (0.6-1.5) mg/dL Est GFR (CKD-EPI)AfAm 40.8 L (60.0-200.0) Est GFR (CKD-EPI)NonAf 35.2 L (60.0-200.0) BUN/Creatinine Ratio 26.25 H (12.00-20.00) Ratio Calcium 7.3 L (8.7-10.3) mg/dL Microbiology - Last 24 Hours (Table) 02/02/21 03:59 Blood Culture - Preliminary Blood No Growth after 48 hours Assessment and Plan Assessment: Impression 1. Acute kidney injury from volume depletion, additionally medications that in cluded valsartan, Aldactone. improved with IV fluids, status post 1 dialysis day before yesterday because of hyperkalemia and hiccups. Creatinine down to 2 2. Chronic kidney disease, stage III, etiology unclear at this time creatinine 1.46 as of 06/22/2018. 3. Anemia and again went down from 17.4-9.8 over the last 2 days no obvious external bleeding. Hemoglobin remained stable at 9.7 today 4. Abdominal pain computed tomography scan was remarkable first distention of the stomach and some possible thickening of large bowel loops 5. Normal kidneys on ultrasound with a few cysts recommendation Recommendation 1. Discontinue IV fluids 2. Discharge as per primary
--- NOTE | 2021-02-04 12:31 | P.PN ---
Subjective Progress Note Date: 02/04/21 Supplemental 6-year-old gentleman with progressive weakness and diarrhea. On admission was noted to have significant renal failure with hyperkalemia and acidosis. If her trophic cardiomyopathy, paroxysmal atrial fibrillation and permanent pacemaker implantation. He did receive dialysis treatment for acute kidney injury. Overall he is feeling better. Maintaining sinus mechanism. Diarrhea has improved. Renal function is improving. A cardiogram with Doppler study done this admission showed normal LV systolic function with ejection fraction between 60-65%, moderate concentric LV hypertrophy, mild MR and mild TR. Objective - Vital Signs Vital signs: Vital Signs Temp 98.1 F 02/04/21 04:46 Pulse 71 02/04/21 08:00 Resp 18 02/04/21 04:46 BP 151/57 02/04/21 04:46 Pulse Ox 98 02/04/21 04:46 Intake & Output 02/03/21 02/04/21 02/04/21 18:59 06:59 18:59 Intake Total 780 1500 Output Total 185 Balance 595 1500 Intake: IV 300 1500 Piperacillin-Tazobactam 3 50 .375 gm In Sodium Chloride 0.9% 100 ml @ 25 mls/hr IVPB Q12HR INGRID Rx #:[id number] Sodium Chloride 0.9% 1, 250 1500 000 ml @ 125 mls/hr IV . Q8H INGRID Rx#:[id number] Oral 480 Output: Urine 185 Other: Voiding Method Indwelling Catheter Toilet Urinal # Bowel Movements 1 - Exam PHYSICAL EXAMINATION: HEENT: Head is atraumatic, normocephalic. Pupils equal, round. Neck is supple. There is no elevated jugular venous pressure. HEART EXAMINATION: Heart sounds regular, S1 and S2 normal. Systolic murmur at the base. CHEST EXAMINATION: Lungs are clear to auscultation. No chest wall tenderness is noted on palpation or with deep breathing. ABDOMEN: Soft, nontender. Bowel sounds are heard. No organomegaly noted. EXTREMITIES: 2+ peripheral pulses with no evidence of peripheral edema and no ca lf tenderness noted. NEUROLOGIC patient is awake, alert and oriented x3. . - Labs CBC & Chem 7: 02/04/21 05:44 02/04/21 05:44 Labs: Abnormal Lab Results - Last 24 Hours (Table) 02/04/21 02/04/21 Range/Units 05:44 05:44 WBC 11.3 H (3.8-10.6) k/uL RBC 2.99 L (4.30-5.90) m/uL Hgb 9.7 L (13.0-17.5) gm/dL Hct 28.3 L (39.0-53.0) % Neutrophils # 8.1 H (1.3-7.7) k/uL Chloride 110 H (96-109) mmol/L Carbon Dioxide 21.2 L (21.6-31.8) mmol/L BUN 52.5 H (9.0-27.0) mg/dL Creatinine 2.0 H (0.6-1.5) mg/dL Est GFR (CKD-EPI)AfAm 40.8 L (60.0-200.0) Est GFR (CKD-EPI)NonAf 35.2 L (60.0-200.0) BUN/Creatinine Ratio 26.25 H (12.00-20.00) Ratio Calcium 7.3 L (8.7-10.3) mg/dL Microbiology - Last 24 Hours (Table) 02/02/21 03:59 Blood Culture - Preliminary Blood No Growth after 48 hours Assessment and Plan Assessment: 1 acute renal injury, improved, patient has received dialysis, he is currently putting out urine #2 likely imbalance with acidosis, improving #3 history of permanent pacemaker implantation with prior paroxysmal atrial ablation. Patient is not anticoagulated at this time because of GI bleeding #4 hypertension #5 hyperlipidemia Plan: From cardiology's perspective medications were reviewed and we will continue the same. At this point we will follow the patient on an as-needed basis. Please do not hesitate to contact us with questions. REGULATORY CONSULTANT note has been reviewed, I agree with a documented findings and plan of care. Patient was seen and examined.
[2021-02-04 13:18] VITALS: BP 152/54; PULSE 83; RESP 20; TEMP 98.3
--- NOTE | 2021-02-04 17:20 | PN ---
PROGRESS NOTE DATE OF SERVICE: 02/04/2021 REASON FOR FOLLOWUP: 1. Leukocytosis. 2. Gastroenteritis, possibly viral. INTERVAL HISTORY: The patient is afebrile, breathing comfortably. No chest pain, shortness of breath or cough. No abdominal pain. Diarrhea has improved. PHYSICAL EXAMINATION: Blood pressure 150/54 with a pulse of 83, temperature 98.3. He is 98% on room air. General description is a middle-aged male lying in bed in no distress. RESPIRATORY SYSTEM: Unlabored breathing. Clear to auscultation anteriorly. HEART: S1, S2. Regular rate and rhythm. ABDOMEN: Soft. No tenderness. LABS: Hemoglobin is 9.7, white count 11.3. Creatinine is down to 2.0. Cultures so far negative. DIAGNOSTIC IMPRESSION AND PLAN: Patient with leukocytosis, possibly related to his underlying enteritis, possibly viral, as the patient continues to improve, despite discontinuation of antibiotic therapy; hence recommend no antibiotic on discharge. Continue supportive care. MMODL / IJN: [id number] /
--- NOTE | 2021-02-04 23:52 | P.DS ---
Providers Date of admission: 02/01/21 16:07 Attending physician: Lianne Collazo Consults: 02/01/21 16:03 Consult Physician Routine Consulting Provider: Gene Case Consult Reason/Comments: acute kidney injury Do you want consulting provider notified?: Yes 02/01/21 16:04 Consult Physician Routine Consulting Provider: Toribio López Consult Reason/Comments: icu patient Do you want consulting provider notified?: Yes Consult Physician Routine Consulting Provider: Fritz Dimas Consult Reason/Comments: ID consult Do you want consulting provider notified?: Yes 02/01/21 16:09 Consult Physician Routine Consulting Provider: Arnav Rodriguez Consult Reason/Comments: HD cath Do you want consulting provider notified?: Yes Primary care physician: Jelena Ray Hospital Course: Final Diagnosis -Acute renal failure secondary to acute blood necrosis from hypotension and diuretics along with DOROTEO inhibitor. patient underwent HD 02/02/21. -Hypovolemic shock: hypovolemic shock, no evidence of sepsis at this time, Blood pressures elevated now. -Leukocytosis, most likely reactive. -Severe anion gap metabolic acidosis secondary to uremia -Hypovolemic hyponatremia: Improved -Hyperkalemia secondary to acute renal failure and acute tubular necrosis -Atrial fibrillation on anticoagulation as mentioned above which will be held patient is presently atrial fibrillation but rate controlled. Patient's metoprolol is being held as well along with the other antidepressant medications -Hypertension: -Acute GI bleed secondary to platelet dysfunction from uremia along with anticoagulation patient will be continued on Protonix twice a day as patient had upper GI bleed with dark stools and some blood in the stools. Patient received desmopressin -Hyperlipidemia -history of permanent pacemaker implantation DVT prophylaxis: No pharmacological DVT prophylaxis because of GI bleed at this time Discharge Disposition Patient is discharged home in stable condition to follow up with his PCP, nephrology in the office. Right groin temporary Hemodialysis catheter was removed from [employer] prior to discharge. Patient was on bedrest for 2 hours with no complications. No antibiotics needed on discharge. Scripts given for repeat labs in 2 to 3 days. Spironolactone, valsartan, DOROTEO, and xarelto have been discontinued on discharge. F/U labs. Hospital Course This is a 60 year old male who came into the hospital with complaints of severe crampy lower abdominal pain that started the day before admission that was preceded with flu like symptoms without any fever or diarrhea. Patient has a medical history significant for atrial fibrillation and on anticoagulation with xarelto. Labs on admission demonstrated acute renal failure with a creatinine of initially 14.39. Additional labs on admission include potassium of 6.6, bicarb level less than 5 Patient also had multiple episodes of nausea and vomiting in the EC. Patient was admitted to the hospital and a temporary hemodialysis catheter was placed in the right groin for emergent hemodialysis. Creatine improved to 8.07 and BUN 128. Patient was hypotensive. Multiple medications the patient was taking, including; valsartan and spironolactone affect kidney function. The hypotension may have lead to acute tubular necrosis. Patient was placed on a bicarbonate gtt and pressor support with norepinephrine in the intensive care unit for severe metabolic acidosis from uremia and hypotension and shock respectively. There was no evidence for infection except for a viral gastroenteritis. The patient had a CT scan of the abdomen which was consistent with mild enterocolitis and gastroenteritis. Patient was started on zosyn empiricly. Luekocytosis of 22,000 on admission as well. Patient had an ID consult who felt no antibiotics were needed on discharge. Stool culture was positive for jim albicans. In addition, patient was noted to have dark stools and blood in the stools this morning secondary to anticoagulation with xarelto and uremic bleeding causing platelet dysfunction because of which patient was given desmopression. on 02/03/21 it was noted that patients GI bleed is improving, there was no more maryanne red blood in the stools. Patient was transferred out of the ICU. Chest xray on admission shows no acute process. Patient was evaluated by cardiology this admission who completed an echocardiogram which revealed an EF of 60 to 65% with moderate concentric LV hypertrophy with mild MR and mild TR. Nephrology followed patient closely this admission and has cleared the patient for discharge with close follow up, no further dialysis needed. 02/04/2021 Patient is seen today in the medical floor. He denies any cough, sugars breath. As needed chest pain, chest pressure or palpitations. He denies any nausea, vomiting, diarrhea. He does report looser stools. Patient was cleared by cardio to services to follow-up outpatient. Nephrology is not recommending any further dialysis treatments and patient will have his port discontinued. Creatinine today is 2. White blood cell count is 11.3, hemoglobin 9.7 stable. Sodium has improved to 141. Blood pressure 151/57, heart rate 71 sinus rhythm, afebrile. Please see medication reconciliation for a list of current medications. Thank you for allowing us to participate in the care of this patient. Patient Condition at Discharge: Stable Plan - Discharge Summary Discharge Rx Participant: Yes New Discharge Prescriptions: New Pantoprazole Sodium [Protonix] 40 mg PO DAILY #15 tab Pantoprazole [Protonix] 40 mg PO BID 15 Days #30 tab Continue clonazePAM [Clonazepam] 2 mg PO HS Loratadine 10 mg PO DAILY Multivitamins, Thera [Multivitamin (formulary)] 1 tab PO DAILY amLODIPine [Norvasc] 10 mg PO DAILY Atorvastatin [Lipitor] 20 mg PO HS Metoprolol Succinate (ER) [Toprol XL] 100 mg PO DAILY #30 tab.er.24h HYDROcodone/APAP 10-325MG [[place] 10-325] 1 tab PO BID Baclofen [Lioresal] 10 mg PO BID Fenofibrate Nanocrystallized [Fenofibrate] 145 mg PO DAILY Morphine Sulfate ER [Ms Contin] 15 mg PO DAILY Discontinued Rivaroxaban [Xarelto] 20 mg PO W/SUPPER Valsartan 320 mg PO DAILY Omeprazole 20 mg PO BID Spironolactone-Hctz 25-25Mg [Aldactazide 25-25Mg] 1 tab PO DAILY Discharge Medication List Loratadine 10 mg PO DAILY 07/22/14 [History] Multivitamins, Thera [Multivitamin (formulary)] 1 tab PO DAILY 07/22/14 [History] clonazePAM [Clonazepam] 2 mg PO HS 07/22/14 [History] amLODIPine [Norvasc] 10 mg PO DAILY 09/06/14 [History] Atorvastatin [Lipitor] 20 mg PO HS 11/03/14 [History] Metoprolol Succinate (ER) [Toprol XL] 100 mg PO DAILY #30 tab.er.24h 11/08/14 [Rx] Baclofen [Lioresal] 10 mg PO BID 06/19/18 [History] Fenofibrate Nanocrystallized [Fenofibrate] 145 mg PO DAILY 06/19/18 [History] HYDROcodone/APAP 10-325MG [[place] 10-325] 1 tab PO BID 06/19/18 [History] Morphine Sulfate ER [Ms Contin] 15 mg PO DAILY 02/01/21 [History] Pantoprazole Sodium [Protonix] 40 mg PO DAILY #15 tab 02/04/21 [Rx] Pantoprazole [Protonix] 40 mg PO BID 15 Days #30 tab 02/04/21 [Rx] Follow up Appointment(s)/Referral(s): Nathanael Batista MD [STAFF PHYSICIAN] - 1 Week (please call office tomorrow when office opens and schedule follow-up appointment) Flor Bowles MD [Primary Care Provider] - 1-2 days (please call office in am and schedule follow-up appointment on Friday, office is currently closed) Darrian Allred MD [STAFF PHYSICIAN] - 1 Week (please call office and schedule a follow-up, office is currently closed.) Ambulatory/Diagnostic Orders: Basic Metabolic Panel [LAB.AMB] Time Frame: 2 Days, Location: None Selected Complete Blood Count w/diff [LAB.AMB] Time Frame: 2 Days, Location: None Selected Patient Instructions/Handouts: Pantoprazole (By mouth), Acute Kidney Injury (DC), Hyperkalemia (DC), Metabolic Acidosis (GEN) Activity/Diet/Wound Care/Special Instructions: no tub soaks for 2 weeks, report pain or problems with groin site Discharge Disposition: HOME SELF-CARE
--- NOTE | 2021-02-07 11:07 | CONS ---
DATE OF CONSULTATION: 02/07/2021 This is a 60-year-old gentleman who came to the emergency room with history of abdominal pain and presented with flu-like symptoms. The patient's labs show creatinine of 8.7 and BNP is 128. I was consulted for urgent placement of a dialysis catheter. In the ER the patient was hypertensive, with a history of atrial fibrillation, on anticoagulation. CT scan of the abdomen shows enterocolitis. PAST HISTORY: Patient has a history of hyperlipidemia, hypertension, musculoskeletal disorder. Patient also has a history of permanent pacemaker. SOCIAL HISTORY: Patient smokes cigarettes daily. PHYSICAL EXAMINATION: Patient was seen in the room. Neck is supple. Trachea central. Chest has a few crackles. Abdomen is soft. Bowel sounds are present. Femoral pulses are palpable. PLAN: Placement of dialysis catheter. Risks and complications were discussed. ROMARIO / JORDANN: [id number] / MTDD
== END 2021-02-04 16:55 | disposition home or self-care (01) | DRG 682 ==
LOC: EC 13:13 → 2SICU 16:07 → 5NMEDONC 02-03 14:45
PROVIDERS: ADMIT Hospitalist; ATTEND Hospitalist
PROC: 5A1D70Z Performance of Urinary Filtration, Intermittent, Less than 6 Hours Per Day (ICD-10-PCS; principal; 2021-02-01)
PROC: 3E033XZ Introduction of Vasopressor into Peripheral Vein, Percutaneous Approach (ICD-10-PCS; 2021-02-01)
PROC: 06HM33Z Insertion of Infusion Device into Right Femoral Vein, Percutaneous Approach (ICD-10-PCS; 2021-02-01)
DX: N17.0 Acute kidney failure with tubular necrosis (principal); R57.1 Hypovolemic shock; E87.1 Hypo-osmolality and hyponatremia; E87.2 Acidosis; I42.2 Other hypertrophic cardiomyopathy; A08.4 Viral intestinal infection, unspecified; D64.9 Anemia, unspecified; D69.1 Qualitative platelet defects; E78.5 Hyperlipidemia, unspecified; E86.0 Dehydration; E86.1 Hypovolemia; E87.5 Hyperkalemia; Z20.822 Contact with and (suspected) exposure to COVID-19; F17.210 Nicotine dependence, cigarettes, uncomplicated; F41.9 Anxiety disorder, unspecified; N18.30 Chronic kidney disease, stage 3 unspecified; I12.9 Hypertensive chronic kidney disease with stage 1 through stage 4 chronic kidney disease, or unspecified chronic kidney disease; I48.0 Paroxysmal atrial fibrillation; Z79.01 Long term (current) use of anticoagulants; Z79.899 Other long term (current) drug therapy; Z95.0 Presence of cardiac pacemaker
CPT/HCPCS: 36415; 71045; 71046; 74177; 80048; 80053; 81001; 82150; 82272; 82803; 83605; 83690; 84132; 84484; 85025; 85610; 85730; 86140; 87040; 87045; 87046; 87635; 90935; 93005; 93306; 96361; 96374; 96375; 99291

== ENCOUNTER → 2021-02-08 | Outpatient (CLI) | payer MEDICARE ==
[2021-02-08 15:20] LABS: HCT 32.3 % (39.6-50.0); HGB 10.7 g/dL (13.0-17.0); MCH 31.7 pg (27.0-32.0); MCHC 33.1 g/dL (32.0-37.0); MCV 95.6 fL (80.0-97.0); Mean Platelet Volume 10.9 fL (9.5-12.2); Platelet Count 390 X 10*3/uL (140-440); RBC 3.38 X 10*6/uL (4.40-5.60); RDW 13.4 % (11.5-14.5); WBC 20.34 X 10*3/uL (4.50-10.00)
[2021-02-08 15:47] LABS: Basophils % (A) 0.5 %; Crenated RBC 2+; Eosinophils # (A) 0.76 X 10*3/uL (0.04-0.35); Eosinophils % (A) 3.7 %; Lymphocytes # (A) 2.81 X 10*3/uL (0.90-5.00); Lymphocytes % (A) 13.8 %; Monocytes # (A) 1.71 X 10*3/uL (0.20-1.00); Monocytes % (A) 8.4 %; Neutrophils # (A) 14.61 X 10*3/uL (1.80-7.70); Neutrophils % (A) 71.9 %
[2021-02-08 17:53] LABS: African American GFR (CKD) 62.8 (60.0-200.0); Anion Gap 11.2 mmol/L (4.00-12.00); BUN/Creat Ratio 14.86 Ratio (12.00-20.00); Blood Urea Nitrogen 20.8 mg/dL (9.0-27.0); Calcium 8.9 mg/dL (8.7-10.3); Carbon Dioxide 20.8 mmol/L (21.6-31.8); Non-African American GFR(CKD) 54.2 (60.0-200.0); Potassium 4.5 mmol/L (3.5-5.5)
== END | disposition home or self-care (01) ==
LOC: LABWHC1 09:41
PROVIDERS: ATTEND Nurse Practitioner Family
DX: N17.9 Acute kidney failure, unspecified (principal); D64.9 Anemia, unspecified; D72.829 Elevated white blood cell count, unspecified
CPT/HCPCS: 36415; 80048; 85025

== ENCOUNTER → 2023-02-13 | Outpatient (CLI) | payer MEDICARE ==
[2023-02-13 16:56] LABS: HCT 39.4 % (39.6-50.0); Mean Platelet Volume 10.3 FL (9.5-12.2); NRBC Per 100 WBC 0 X 10*3/uL (0.00-0.01); Platelet Count 369 X 10*3/uL (140-440); RBC 4.19 X 10*6/uL (4.40-5.60); RDW 13.2 % (11.5-14.5); WBC 10.22 X 10*3/uL (4.50-10.00)
[2023-02-13 17:33] LABS: Blood Urea Nitrogen 33.6 mg/dL (9.0-27.0); Carbon Dioxide 25.2 mmol/L (21.6-31.8); Chloride 106 mmol/L (96-109); Potassium 6.1 mmol/L (3.5-5.5); Sodium 142 mmol/L (135-145)
== END | disposition home or self-care (01) ==
LOC: LABPAT 09:50
PROVIDERS: ATTEND Internal Medicine Interventional Cardiology
DX: Z01.812 Encounter for preprocedural laboratory examination (principal); I34.0 Nonrheumatic mitral (valve) insufficiency
CPT/HCPCS: 80051; 82565; 84520; 85027

== ENCOUNTER → 2023-02-14 | Outpatient (CLI) | payer MEDICARE | END | disposition home or self-care (01) | LOC: LABWHC1 13:20 | PROVIDERS: ATTEND Internal Medicine Clinical Cardiac Electrophysiology | DX: Z00.00 Encounter for general adult medical examination without abnormal findings (principal); E87.5 Hyperkalemia | CPT/HCPCS: 36415; 84132 ==

== ENCOUNTER 2023-02-17 09:40 | Day surgery (SDC) | payer MEDICARE ==
[~2023-02-17 09:40] MED LIST changes: -ASPIRIN 325 MG TAB PO ONE; +ASPIRIN 325 MG TAB PO STA; -ATORVASTATIN 80 MG TAB PO ONE; +HEPARIN SODIUM,PORCINE (1 ML) 2,500 UNIT in SODIUM CHLORIDE 0.9% 250 ML IRRIGATION PRN; +HEPARIN SODIUM,PORCINE 10,000 UNIT in SODIUM CHLORIDE 0.9% 1,000 ML IRRIGATION PRN; -SODIUM CHLORIDE 0.9% 1,000 ML IV SCH; -SODIUM CHLORIDE 0.9% 1,000 ML in EMPTY BAG 1 BAG IV ONE; +SODIUM CHLORIDE 0.9% 1,000 ML in EMPTY BAG 1 BAG IV SCH
[2023-02-17 10:15] VITALS: RESP 18; TEMP 98.3
[2023-02-17 10:37] LABS: African American GFR (CKD) 68 (>60 ml/min/1.73 sqM); Anion Gap 10 mmol/L; Blood Urea Nitrogen 38 mg/dL (9-20); Calcium 9.4 mg/dL (8.4-10.2); Carbon Dioxide 22 mmol/L (22-30); Chloride 106 mmol/L (98-107); Glucose 105 mg/dL (74-99); Non-African American GFR(CKD) 59 (>60 ml/min/1.73 sqM); Potassium 4.9 mmol/L (3.5-5.1); Sodium 138 mmol/L (137-145)
[2023-02-17] MEDS ORDERED: VERAPAMIL 2.5 MG/ML 2 ML AMP ONE (11:47)
[2023-02-17] MEDS ORDERED: fentaNYL (PF) 50 MCG/ML 2 ML AMP IVP ONE (12:05)
[2023-02-17] MEDS ORDERED: MIDAZOLAM 2 MG/2 ML VIAL IVP ONE (12:05)
[2023-02-17] MEDS ORDERED: fentaNYL (PF) 50 MCG/ML 2 ML AMP ONE (12:06)
[2023-02-17] MEDS ORDERED: LIDOCAINE 1% INJ 10MG/ML (20 ML MDV) SQ ONE ×2 (12:06→12:19)
[2023-02-17] MEDS ORDERED: LIDOCAINE 1% INJ 10MG/ML (20 ML MDV) ONE (12:18)
[2023-02-17] MEDS ORDERED: VERAPAMIL SYRINGE (5 MG/10 ML) INTRAARTER ONE (12:25)
[2023-02-17] MEDS ORDERED: HEPARIN SODIUM 1,000 UN/ML (10ML VL) IV ONE (12:29)
[2023-02-17] MEDS ORDERED: IOPAMIDOL-370 100ML BTL INJ ONE (12:56)
[2023-02-17] MEDS ORDERED: RX INFO: IV CONTRAST WAS GIVEN 1 EACH MISC MISCELLANE PRN (13:08)
--- NOTE | 2023-02-17 13:08 | P.CARDCATH ---
Date of Procedure: 02/17/23 Description of Procedure: DIAGNOSTIC CORONARY ANGIOGRAPHY and LEFT HEART CATH REPORT PROCEDURES PERFORMED: Left heart catheterization right heart catheterization Selective coronary angiography Moderate conscious sedation 47 mins Right radial access right femoral vein access, ultrasound assisted Vascade closure INDICATION: Severe MR Patient is a 62-year-old male who is known to Dr. wheeler. He has history of complete heart block status post permanent pacemaker. He is dealing with severe mitral regurgitation and NYHA class II exertional shortness of breath. As a part of his mitral valve preprocedure evaluation, he is planned for a right heart and left heart catheterization. CONSENT: I have discussed the risks, benefits and alternative therapies for the above-mentioned procedure, sedation/analgesia and necessary blood product administration (if indicated, as they pertain to this patient). The patient has indicated understanding and acceptance of the risks and procedures discussed. Conscious Sedation: Patient's ECG, heart rate, blood pressure, pulse oximetry was monitored throughout the duration of procedure under my direct supervision. 2 mg Versed and 50 mg Fentanyl were used for induction of moderate conscious sedation. Total duration of moderate concious sedation 47 minutes. PROCEDURE: After explaining the risks, benefits and alternatives of the above mentioned procedures in detail to the patient, informed consent was obtained. Patient was taken to the catheterization lab, prepped and draped in usual sterile fashion using universal precuations. Barbow and shahana test were performed to confirm adequate perfusion to fingers. 1% lidocaine was infiltrated over the right radial artery. A 6-Divehi sheath was placed and secured in the right radial artery using modified Seldinger technique. The sheath was flushed and 5 mg verapamil was administered intra-arterially. Ultrasound was used to identify right antecubital vein, but it could not be ronni ntified. Ultrasound was used to identify the right common femoral vein. 1% lidocaine was infiltrated over the right common femoral vein. Right common femoral vein access was obtained via modified Seldinger technique under ultrasound guidance. 6-Divehi sheath was advanced into the vein and flushed. A 6-Divehi [place] catheter was advanced and the sheath and was advanced under fluoroscopy guidance to the ventricular dilatation. Sequential pressures were obtained at which patient, pulmonary artery, right ventricle and right atrium. Thermodilution and Rachael cardiac output study was not performed as main indication for the study was to look for pulmonary artery pressures and wedge pressures in setting of severe MR. J tipped wire was advanced under fluoroscopic guidance. Once the wire tip re ached aortic root 5500 units of IV heparin was given. Over the wire JL4 diagnostic catheter was advanced. Wire was removed, catheter was flushed and manipulated under fluoroscopy to selectively engaged the left coronary ostium. Left coronary angioplasty was performed in different angiographic projections. This catheter was exchanged for a JR4 diagnostic catheter over the wire. The catheter was flushed and manipulated to cross the aortic valve. LV pressures were obtained. Pullback was performed across aortic valve and catheter was manipulated to selectively engage the right coronary ostium under fluoroscopic guidance. Right coronary angiography was performed in different angiographic projections. Catheter was removed over the wire. Radial sheath was flushed. The right radial sheath was removed and a TR band was placed with excellent patent hemostasis was achieved. The patient tolerated the procedure well. Patient was transported back to the post catheterization holding area in stable condition. Angiographic images were reviewed in detail. HEMODYNAMICS: Aortic Pressure: 151/56 mmHg. LV pressure: 150/8 mmHg. LVEDP 15 mmHg. Mean wedge pressure 20 mmHg PA pressure 41/21 mmHg, mean PA pressure 30 mmHg RV pressures 44/10. RVEDP 18 mmHg Mean RA pressure 14 mmHg SELECTIVE CORONARY ARTERIOGRAPHY: LEFT MAIN: The left main is a large caliber vessel which bifurcates into the LAD and circumflex. Left main appears angiographically normal. LEFT ANTERIOR DESCENDING CORONARY ARTERY: LAD is a large caliber vessel which wraps around to the apex. It appears angiographically normal. LEFT CIRCUMFLEX CORONARY ARTERY: It is dominant vessel. Left circumflex is a large caliber vessel. It appears angiographically normal. It gives rise to OM branches which appears angiographically normal. LCx also gives rise to PDA and PL branches which appears angiographically normal RIGHT CORONARY ARTERY: Non-dominant vessel. The right coronary artery is a small caliber vessel which gives Rv marginal branch. IMPRESSION: Angiographically normal coronary arteries as described above. Normal left sided filling pressures Mildly elevated Wedge pressure at 20 mmHg. Mildly elevated RA pressures at 14 mmHg No significant pulmonary hypertension Severe MR by echocardiogram PLAN: Aggressive risk factor modification per most recent ACC/AHA guidelines. 125 cc fluids for 4 hours Discharge home in 4 hours Follow-up in the office in 1-[address] Wheeler Performing Physician Raghav Moise MD
[2023-02-17] MEDS ORDERED: SODIUM CHLORIDE 0.9% 1,000 ML IV SCH (13:15)
[2023-02-17 14:49] VITALS: PULSE 57
[2023-02-17 16:01] VITALS: BP 158/74
== END 2023-02-17 16:17 | disposition home or self-care (01) ==
LOC: CATHCVL 09:40
PROVIDERS: ATTEND Student in an Organized Health Care Education/Training Program
DX: I44.2 Atrioventricular block, complete (principal); I34.0 Nonrheumatic mitral (valve) insufficiency; E83.52 Hypercalcemia; I10 Essential (primary) hypertension; F17.210 Nicotine dependence, cigarettes, uncomplicated; Z79.899 Other long term (current) drug therapy
CPT/HCPCS: 93460; 76937; 80048; C1769 ×3; C1894; C1751; C1760; J2250; J2001; J3010; J1644; Q9967

== ENCOUNTER 2023-09-10 10:43 | Day surgery (SDC) | payer MEDICARE ==
[2023-09-08 13:27] VITALS: BMI 28.7
[~2023-09-10 10:43] MED LIST changes: -ALPRAZolam 0.25 MG TAB PO PRN; -ALPRAZolam 0.5 MG TAB PO PRN; -ASPIRIN 325 MG TAB PO STA; -HEPARIN SODIUM,PORCINE (1 ML) 2,500 UNIT in SODIUM CHLORIDE 0.9% 250 ML IRRIGATION PRN; -HEPARIN SODIUM,PORCINE 10,000 UNIT in SODIUM CHLORIDE 0.9% 1,000 ML IRRIGATION PRN; -NITROGLYCERIN SL TABS 0.4 MG TAB SUBLINGUAL PRN; -SODIUM CHLORIDE 0.9% 1,000 ML in EMPTY BAG 1 BAG IV SCH; +fentaNYL (PF) 50 MCG/ML 2 ML AMP ONE
[2023-09-10] MEDS: IV FLUID CONTINUATION 1,000 ML IV ONE (11:20)
[2023-09-10 11:42] VITALS: RESP 16; TEMP 98.3
[2023-09-10] MEDS ORDERED: fentaNYL (PF) 50 MCG/ML 2 ML AMP ONE (11:44)
[2023-09-10] MEDS: SODIUM CHLORIDE 0.9% 500 ML DEHP FREE BAG IV STA (11:44)
[2023-09-10] MEDS: fentaNYL (PF) 50 MCG/ML 2 ML AMP IVP ONE (12:07)
[2023-09-10] MEDS: BENZOCAINE SPRAY 1 CAN MUCOUS MEM ONE (12:07)
[2023-09-10] MEDS: MIDAZOLAM 2 MG/2 ML VIAL IVP ONE (12:07)
--- NOTE | 2023-09-10 13:06 | P.TEE ---
Date of Procedure: 09/10/23 Description of Procedure(s): Procedure performed: 1. Transesophageal Echocardiogram with color flow doppler, pulsed wave doppler and continuous wave doppler 2. Moderate conscious sedation. Sedation time 20 mins. Indications: 63-year-old male with past medical history of valvular heart disease with moderate to severe aortic regurgitation and mild to moderate aortic regurgitation. He also has prior history of hypertrophic cardiomyopathy which is nonobstructive in nature. He was scheduled for a transesophageal echocardiogram to evaluate and quantify his valvular dysfunction. Consent: I have discussed the risks, benefits and alternative therapies for the above-mentioned procedure. The patient has indicated understanding and acceptance of the risks of the procedure. Signed consent was obtained and was placed in the paper chart. Procedural Steps: Timeout was performed in usual fashion. Patient's heart rate, blood pressure, oxygen saturation and ECG were monitored. Benzocaine was sprayed liberally in the back of the throat. Bite block was placed between the jaw. 3 mg of Versed and 75 mcg of Fentanyl were administered intravenously. After achieving appropriate moderate conscious sedation, RAFAT probe was advanced without difficulty and without any immediate complications to the esophagus. RAFAT study was performed with color flow doppler, pulsed wave doppler and continuous wave doppler. The probe was then removed. Patient tolerated the procedure well. Patient was transferred to the post procedure area in stable and satisfactory condition. Throughout the procedure patient's heart rate, blood pressure, oxygen saturation and ECG were monitored. Total sedation time 20 mins. Complications: none FINDINGS Left Atrium: Moderate left atrial dilatation. No evidence of mass or thrombus seen. No evidence of systolic flow reversal in right and left inferior pulmonic veins. Normal Systolic and diastolic forward flow with s/d ratio 1. Left Atrial Appendage: No evidence of thrombus or mass seen in CARINA Inter atrial septum: Intact inter-atrial septum with no evidence of atrial septal defect or patent foramen ovale on color Doppler. Left Ventricle: Normal global LV systolic function. No evidence of LVOT obstruction. No significant gradient in the LVOT on pulse-wave Doppler. Right Atrium: Normal overall RA size. PPM/ICD wire noticed in RA, evidence of vegetation. Right Ventricle: Normal global RV size and systolic function. PPM/ICD wire noticed in RV, evidence of vegetation. Aortic Valve: Trileaflet, mild to moderate central aortic regurgitation. AR PISA radius 0.5 cm at aliasing velocity of 33 cm/sec. Satisfactory Dopplers to quantify AR VTI and peak velocity were attempted but could not be obtained. TR jet width 0.3 cm. LVOT with 2 cm. Jet width ratio 15% puts it at mild AR. No clear evidence of diastolic flow reversal in ascending aorta. Mitral Valve: Minimal prolapse of anterior mitral leaflet. Aortic regurgitation jet hits anterior mitral leaflet during diastole. Mildly restricted posterior mitral leaflet. Posteriorly directed moderate eccentric mitral regurgitation. Aliasing velocity 35 cm/s Peak velocity 5.75 m/s MR VTI 218 cm Pisa 0.5 cm MR EROA 0.1 cm MR regurgitant volume 20 mL No systolic flow reversal in pulmonic vein noticed Highly eccentric posteriorly directed jet This puts it at mild to moderate mitral regurgitation Pulmonic Valve: Not well visualized. Tricuspid Valve: Mild tricuspid regurgitation. Ascending aorta, Aortic root and Aortic arch: Aortic root measured at 3.7 cm, ascending aorta measured at 3.5 cm. Mild intimal thickening with no bulky calcification. Descending aorta: Mild intimal thickening. No evidence of large atheroma or bulky calcification CONCLUSION: Posteriorly directed moderate eccentric mitral regurgitation due to minimal anterior mitral leaflet prolapse and mildly restricted posterior mitral leaflet. Mild to moderate central aortic regurgitation Normal global LV size and systolic function Moderate LA dilatation PPM/ICD wire noticed in RA and RV Mitral regurgitation and aortic regurgitation appears less severe when compared to prior RAFAT from 12/2022 Raghav Moise MD, RPVI, FACC Thank you for allowing [facility] to participate in this patient's care. Feel free to reach out in case of any followup questions.
[2023-09-10 13:31] VITALS: BP 139/63; PULSE 52
== END 2023-09-10 13:40 | disposition home or self-care (01) ==
LOC: CATHCVL 10:43
PROVIDERS: ATTEND Student in an Organized Health Care Education/Training Program
DX: I34.0 Nonrheumatic mitral (valve) insufficiency (principal); I42.2 Other hypertrophic cardiomyopathy; I44.2 Atrioventricular block, complete; I12.9 Hypertensive chronic kidney disease with stage 1 through stage 4 chronic kidney disease, or unspecified chronic kidney disease; N18.9 Chronic kidney disease, unspecified; Z95.0 Presence of cardiac pacemaker; Z87.891 Personal history of nicotine dependence; Z88.1 Allergy status to other antibiotic agents; Z88.8 Allergy status to other drugs, medicaments and biological substances; Z79.01 Long term (current) use of anticoagulants; Z79.899 Other long term (current) drug therapy; Z82.49 Family history of ischemic heart disease and other diseases of the circulatory system
CPT/HCPCS: 93312; 93320; 93325; J2250; J3010

== ENCOUNTER → 2023-10-15 | Outpatient (CLI) | payer MEDICARE ==
[2023-10-15 15:29] LABS: BUN/Creat Ratio 19.22 Ratio (12.00-20.00); Blood Urea Nitrogen 34.6 mg/dL (9.0-27.0); Carbon Dioxide 23.9 mmol/L (21.6-31.8); Chloride 104 mmol/L (96-109); Glucose 118 mg/dL (70-110); Sodium 139 mmol/L (135-145)
[2023-10-15 15:30] LABS: Calcium 9.6 mg/dL (8.7-10.3)
== END | disposition home or self-care (01) ==
LOC: LABWHC1 09:28
DX: I34.0 Nonrheumatic mitral (valve) insufficiency (principal); I35.1 Nonrheumatic aortic (valve) insufficiency
CPT/HCPCS: 36415; 80048

== ENCOUNTER → 2023-12-03 | Outpatient (CLI) | payer MEDICARE ==
[2023-12-03 18:24] LABS: Basophils # (A) 0.09 X 10*3/uL (0.00-0.10); Eosinophils # (A) 0.32 X 10*3/uL (0.04-0.35); Eosinophils % (A) 3.6 %; HCT 28.1 % (39.6-50.0); HGB 8.6 g/dL (13.0-17.0); Lymphocytes # (A) 1.97 X 10*3/uL (0.90-5.00); Lymphocytes % (A) 22.3 %; MCH 28.7 pg (27.0-32.0); MCHC 30.6 g/dL (32.0-37.0); MCV 93.7 FL (80.0-97.0); Mean Platelet Volume 9.1 FL (9.5-12.2); Monocytes # (A) 0.69 X 10*3/uL (0.20-1.00); Monocytes % (A) 7.8 %; NRBC Per 100 WBC 0 X 10*3/uL (0.00-0.01); Neutrophils # (A) 5.71 X 10*3/uL (1.80-7.70); Neutrophils % (A) 64.8 %; Platelet Count 459 X 10*3/uL (140-440); RDW 14.2 % (11.5-14.5); WBC 8.82 X 10*3/uL (4.50-10.00)
[2023-12-03 18:53] LABS: BUN/Creat Ratio 15.64 Ratio (12.00-20.00); Blood Urea Nitrogen 21.9 mg/dL (9.0-27.0); Chloride 108 mmol/L (96-109); Glucose 117 mg/dL (70-110); Magnesium 1.9 mg/dL (1.5-2.4); Potassium 5.4 mmol/L (3.5-5.5); Sodium 143 mmol/L (135-145)
[2023-12-03 18:54] LABS: ALT 10 U/L (10-49); AST 18 U/L (14-35); Albumin 3.8 g/dL (3.8-4.9); Albumin/Globulin Ratio 1.41 Ratio (1.60-3.17); Alkaline Phosphatase 66 U/L (41-126); Calcium 9.3 mg/dL (8.7-10.3); Carbon Dioxide 24.2 mmol/L (21.6-31.8); Globulin 2.7 g/dL (1.6-3.3); Total Bilirubin 0.2 mg/dL (0.3-1.2); Total Protein 6.5 g/dL (6.2-8.2)
== END | disposition home or self-care (01) ==
LOC: LABWHC1 14:58
PROVIDERS: ATTEND Internal Medicine Interventional Cardiology
DX: I10 Essential (primary) hypertension (principal)
CPT/HCPCS: 36415; 80053; 83735; 85025

== ENCOUNTER → 2024-06-02 | Outpatient (CLI) | payer MEDICARE ==
--- NOTE | 2024-06-02 13:36 | CTL ---
EXAMINATION TYPE: CT Low Dose Lung DATE OF EXAM ORDERED: 06/02/2024 COMPARISON: None CLINICAL INDICATION: Male, 64 years old with history of Z87.891 personal hx tobacco use; [facility], FORMER TOBACCO USER, Lung cancer screening, History of Smoking/tobacco use. TECHNIQUE: Low dose computed tomography scan was performed through the chest at 1 mm thick sections a nd reconstructed images in multiple planes at 1 mm and [address] DLP: [address] CTDI: 2.6 mGy Automated exposure control for dose reduction was used. CT DIAGNOSTIC QUALITY: Satisfactory Findings: There are mild emphysematous changes with an upper lobe predominance. There is a single small calcified granuloma in the left lower lobe. There is no suspicious lung mass or nodule. There is no lung consolidation or abnormal interstitial density. There is no pleural effusion or pneumothorax. The great vessels and heart are normal in size. There is no mediastinal, hilar or axillary adenopathy. Limited scanning through the upper abdomen reveals no gross abnormality. There are no focal osseous lesions. IMPRESSION: 1. Lung RADS category 1 negative.. Continue routine screening at yearly intervals. 2. No acute cardiopulmonary disease. 3. Mild emphysematous changes. [facility], , 06/02/2024 1:34 PM
== END | disposition home or self-care (01) ==
LOC: RADCTMAIN 12:20
PROVIDERS: ATTEND Internal Medicine
DX: Z12.2 Encounter for screening for malignant neoplasm of respiratory organs (principal); J43.9 Emphysema, unspecified; Z87.891 Personal history of nicotine dependence
CPT/HCPCS: 71271